=== PATIENT | female | born 1935 | race Caucasian/White ===

== ENCOUNTER 2016-07-23 16:57 | Emergency (ER) | payer MEDICARE, MEDICAID ==
[2016-07-23] MEDS ORDERED: ACETAMINOPHEN 325 MG TABLET PO ONE (18:02)
[2016-07-23 18:34] VITALS: BP 127/64
[2016-07-23] MEDS ORDERED: LIDOCAINE 5% (700 MG) TRANSDERMAL ADH..PATCH TP ONE (18:34)
--- NOTE | 2016-07-23 18:34 | ER Document Report ---
ED General - General Chief Complaint: Fall Stated Complaint: FALL/HEADACHE AND BRUSING Time Seen by Provider: 07/23/16 17:45 TRAVEL OUTSIDE OF THE [place] IN LAST 30 DAYS: No - HPI Patient complains to provider of: fall head pain knee pain and ankle pain Notes: Patient coming in for evaluation after a fall. Patient fell out of her bed on Sunday morning. Patient states she ruled out hit her head. No loss of consciousness coming in today because of continued head pain. Patient states no relief with tramadol home. Patient denies fevers chills nausea vomiting. Patient also complains of left knee left ankle pain - Related Data Allergies/Adverse Reactions: levofloxacin [From Levaquin] Allergy (Intermediate, Verified 07/23/16 17:14) Hives Sulfa (Sulfonamide Antibiotics) Allergy (Intermediate, Verified 07/23/16 17:14) Hives codeine [Codeine] Allergy (Verified 07/23/16 17:14) morphine Allergy (Verified 07/23/16 17:14) Penicillins Allergy (Verified 07/23/16 17:14) Quinazolinones Allergy (Verified 07/23/16 17:14) Past Medical History - Social History Smoking Status: Former Smoker Chew tobacco use (# tins/day): No Frequency of alcohol use: None Drug Abuse: None Family History: Hypertension, Malignancy - Past Medical History Cardiac Medical History: Reports: Hx Atrial Fibrillation, Hx Hypercholesterolemia, Hx Hypertension Denies: Hx Coronary Artery Disease, Hx Heart Attack Pulmonary Medical History: Reports: Hx Bronchitis, Hx Pneumonia, Hx Respiratory Failure Denies: Hx Asthma, Hx COPD Neurological Medical History: Denies: Hx Cerebrovascular Accident, Hx Seizures Endocrine Medical History: Reports: Hx Diabetes Mellitus Type 2 - metformin Renal/ Medical History: Denies: Hx Peritoneal Dialysis Musculoskeltal Medical History: Reports Hx Arthritis, Reports Hx Fibromyalgia, Reports Hx Musculoskeletal Deformity Past Surgical History: Reports: Hx Abdominal Surgery, Hx Cholecystectomy, Hx Herniorrhaphy, Hx Orthopedic Surgery - l knee - Immunizations Immunizations up to date: Yes Hx Diphtheria, Pertussis, Tetanus Vaccination: Yes Review of Systems - Review of Systems Constitutional: No symptoms reported EENT: No symptoms reported Cardiovascular: No symptoms reported Respiratory: No symptoms reported Gastrointestinal: No symptoms reported Genitourinary: No symptoms reported Female Genitourinary: No symptoms reported Musculoskeletal: Other - Head pain knee ankle pain Skin: No symptoms reported Hematologic/Lymphatic: No symptoms reported Neurological/Psychological: No symptoms reported Physical Exam - Vital signs Vitals: Temp Pulse Resp BP Pulse Ox 98.5 F 83 18 104/65 98 07/23/16 17:06 07/23/16 17:06 07/23/16 17:06 07/23/16 17:06 07/23/16 17:06 Interpretation: Normal - General General appearance: Appears well, Alert - HEENT Head: Normocephalic. No: Atraumatic - Bruising to the left upper scalp Eyes: Normal Pupils: PERRL - Respiratory Respiratory status: No respiratory distress Chest status: Nontender Breath sounds: Normal Chest palpation: Normal - Cardiovascular Rhythm: Regular Heart sounds: Normal auscultation Murmur: No - Abdominal Inspection: Normal Distension: No distension Bowel sounds: Normal Tenderness: Nontender Organomegaly: No organomegaly - Back Back: Normal, Nontender - Extremities General upper extremity: Normal inspection, Nontender, Normal color, Normal ROM , Normal temperature General lower extremity: Normal inspection, Nontender, Normal color, Normal ROM , Normal temperature, Normal weight bearing. No: Nikki's sign - Neurological Neuro grossly intact: Yes Cognition: Normal Orientation: AAOx4 [place] Coma Scale Eye Opening: Spontaneous Kamar Coma Scale Verbal: Oriented [place] Coma Scale Motor: Obeys Commands Kamar Coma Scale Total: 15 Speech: Normal Motor strength normal: LUE, RUE, LLE, RLE Sensory: Normal - Psychological Associated symptoms: Normal affect, Normal mood - Skin Skin Temperature: Warm Skin Moisture: Dry Skin Color: Normal Course - Re-evaluation Re-evalutation: 07/23/16 18:29 X-rays are negative. No signs of acute pathology. Patient will be discharged home instructions to use Tylenol Motrin for her head pain patient can't take her tramadol at home for pain. - Vital Signs Vital signs: Temp Pulse Resp BP Pulse Ox 98.5 F 83 18 104/65 98 07/23/16 17:06 07/23/16 17:06 07/23/16 17:06 07/23/16 17:06 07/23/16 17:06 Discharge - Discharge Clinical Impression: Contusion, multiple sites Condition: Good Disposition: HOME, SELF-CARE Instructions: Contusion ([facility]) Additional Instructions: Your CT scan and x-rays today show no signs of fracture or significant trauma. More likely your still expressing pain from bruising or contusion. It will take approximately 5-7 days for this to go away. He can continue your medications at home take Tylenol Motrin for your pain. You may also use the Lidoderm patch if he received good pain relief from is patchy mask her pharmacist about [id number] lidocaine cream or patches. He may also use ice and heat.
== END 2016-07-23 18:35 | disposition home or self-care (01) ==
LOC: ER 16:57
DX: R51 Headache (principal); S00.03XA Contusion of scalp, initial encounter; M25.569 Pain in unspecified knee; M25.579 Pain in unspecified ankle and joints of unspecified foot; W06.XXXA Fall from bed, initial encounter; I10 Essential (primary) hypertension; E11.9 Type 2 diabetes mellitus without complications; Z88.1 Allergy status to other antibiotic agents; Z88.2 Allergy status to sulfonamides; Z88.5 Allergy status to narcotic agent; Z88.0 Allergy status to penicillin; Z88.8 Allergy status to other drugs, medicaments and biological substances
CPT/HCPCS: 99284; 73610; 73560; 70450; A9270

== ENCOUNTER → 2016-11-07 | Outpatient (CLI) | payer MEDICARE, MEDICAID ==
[2016-11-07 16:56] LABS: ABSOLUTE EOSINOPHILS # (AUTO) 0.1 10^3/uL (0.0-0.6); ABSOLUTE MONOCYTES (AUTO) 0.3 10^3/uL (0.1-1.4); ABSOLUTE NEUT (AUTO) 3.5 10^3/uL (1.7-8.2); BASOPHILS % (AUTO) 0.4 % (0-2); EOSINOPHILS % (AUTO) 1.7 % (0-6); HEMATOCRIT 33.1 % (36.0-47.0); HEMOGLOBIN 11.2 g/dL (12.0-15.5); HGB HCT DIFFERENCE 0.5; LYMPHOCYTES % (AUTO) 20.3 % (13-45); MEAN CORPUSCULAR HEMOGLOBIN 32.8 pg (27.0-33.4); MEAN CORPUSCULAR HGB CONC 33.8 g/dL (32.0-36.0); MEAN CORPUSCULAR VOLUME 97 fl (80-97); MONOCYTES % (AUTO) 5.8 % (3-13); RED BLOOD COUNT 3.41 10^6/uL (3.72-5.28); RED CELL DISTRIBUTION WIDTH 15.5 % (11.5-14.0); SEGMENTED NEUTROPHILS % (AUTO) 71.8 % (42-78); WHITE BLOOD COUNT 4.9 10^3/uL (4.0-10.5)
[2016-11-07 17:02] LABS: ALANINE AMINOTRANSFERASE 18 U/L (9-52); ALBUMIN 3.4 g/dL (3.5-5.0); ALKALINE PHOSPHATASE 117 U/L (38-126); ANION GAP 9 (5-19); ASPARTATE AMINO TRANSFERASE 24 U/L (14-36); BILIRUBIN,DIRECT 0.4 mg/dL (0.0-0.4); BILIRUBIN,TOTAL 0.6 mg/dL (0.2-1.3); BLOOD UREA NITROGEN 13 mg/dL (7-20); CALCIUM 9.6 mg/dL (8.4-10.2); CARBON DIOXIDE 32 mmol/L (22-30); CHLORIDE 98 mmol/L (98-107); CREATININE RESULT 0.74 mg/dL (0.52-1.25); GLUCOSE 120 mg/dL (75-110); POTASSIUM 4.4 mmol/L (3.6-5.0); SODIUM 139.2 mmol/L (137-145); TOTAL PROTEIN 6.3 g/dL (6.3-8.2)
[2016-11-07 17:05] LABS: AMORPHOUS SEDIMENT,URINE TRACE /HPF; APPEARANCE,URINE CLOUDY; BILIRUBIN,URINE NEGATIVE (NEGATIVE); GLUCOSE, URINE NEGATIVE (NEGATIVE); KETONES,URINE NEGATIVE (NEGATIVE); LEUKOCYTE ESTERASE,URINE NEGATIVE (NEGATIVE); NITRITE,URINE NEGATIVE (NEGATIVE); PROTEIN,URINE NEGATIVE (NEGATIVE); URINE SPECIFIC GRAVITY 1.012
== END ==
LOC: OD 15:10
PROVIDERS: ATTEND Internal Medicine
DX: N39.0 Urinary tract infection, site not specified (principal); R53.83 Other fatigue; Z79.899 Other long term (current) drug therapy
CPT/HCPCS: 36415; 80053; 81001; 85025; 87086

== ENCOUNTER 2016-11-15 17:10 | Inpatient (IN) | payer MEDICARE, MEDICAID ==
--- NOTE | 2016-11-15 17:31 | RADIOLOGY REPORT (SQ) ---
EXAM DESCRIPTION: CT HEAD WITHOUT COMPLETED DATE/TIME: 11/15/2016 5:20 pm REASON FOR STUDY: STROKE ALERT COMPARISON: 07/23/2016 TECHNIQUE: Axial images acquired through the brain without intravenous contrast. Images reviewed wi th bone, brain and subdural windows. Images stored on PACS. All CT scanners at this facility use dose modulation, iterative reconstruction, and/or weight based d osing when appropriate to reduce radiation dose to as low as reasonably achievable (ALARA). [facility]: Dose Right [facility]: CareDose [facility]: Dose Right [facility]: Teradose 4D [facility]: [employer] RADIATION DOSE: mGy. LIMITATIONS: None. FINDINGS: VENTRICLES: Normal size and contour. CEREBRUM: No masses. No hemorrhage. No midline shift. No evidence for acute infarction. Normal gra y/white matter differentiation. No areas of low density in the white matter. CEREBELLUM: No masses. No hemorrhage. No alteration of density. No evidence for acute infarction. EXTRAAXIAL SPACES: No fluid collections. No masses. ORBITS AND GLOBE: No intra- or extraconal masses. Normal contour of globe without masses. CALVARIUM: No fracture. PARANASAL SINUSES: No fluid or mucosal thickening. SOFT TISSUES: No mass or hematoma. OTHER: Calcifications involving the right TMJ and medial to the TMJ are stable when compared to prior study. IMPRESSION: 1. No acute intracranial event. 2. 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 COMMENT: Pertinent positive or negative findings of the imaging study reported as a CRITICAL EXAM t betina Bach at17:22 on 11/15/2016. Category of Critical Exam: Negative for acute stroke. Quality ID # [id number]: Final reports with documentation of one or more dose reduction techniques (e.g., Au tomated exposure control, adjustment of the mA and/or kV according to patient size, use of iterative reconstruction technique) TECHNICAL DOCUMENTATION: JOB ID: [id number] [employer]- All Rights Reserved
--- NOTE | 2016-11-15 17:33 | RADIOLOGY REPORT (SQ) ---
EXAM DESCRIPTION: CHEST SINGLE VIEW COMPLETED DATE/TIME: 11/15/2016 5:25 pm REASON FOR STUDY: STROKE ALERT COMPARISON: 08/17/2015 EXAM PARAMETERS: NUMBER OF VIEWS: One view. TECHNIQUE: Single frontal radiographic view of the chest acquired. RADIATION DOSE: NA LIMITATIONS: Low lung volumes. FINDINGS: LUNGS AND PLEURA: There is bibasilar atelectasis. Findings are accentuated by low lung vo lumes. Similar findings were present previously. There is interposition of the colon on the right. There is a hiatal hernia. MEDIASTINUM AND HILAR STRUCTURES: No masses. Contour normal. HEART AND VASCULAR STRUCTURES: Heart normal in size. Normal vasculature. BONES: No acute findings. HARDWARE: None in the chest. OTHER: No other significant finding. IMPRESSION: No interval change in the chest. No acute findings. TECHNICAL DOCUMENTATION: JOB ID: [id number]
[2016-11-15 18:03] LABS: ABSOLUTE EOSINOPHILS # (AUTO) 0.1 10^3/uL (0.0-0.6); ABSOLUTE LYMPHOCYTES (AUTO) 1.1 10^3/uL (0.5-4.7); ABSOLUTE MONOCYTES (AUTO) 0.3 10^3/uL (0.1-1.4); ABSOLUTE NEUT (AUTO) 3.9 10^3/uL (1.7-8.2); BASOPHILS % (AUTO) 0.4 % (0-2); HEMATOCRIT 32.1 % (36.0-47.0); HGB HCT DIFFERENCE 0.9; LYMPHOCYTES % (AUTO) 20.2 % (13-45); MEAN CORPUSCULAR HEMOGLOBIN 33.2 pg (27.0-33.4); MEAN CORPUSCULAR HGB CONC 34.3 g/dL (32.0-36.0); MEAN CORPUSCULAR VOLUME 97 fl (80-97); MONOCYTES % (AUTO) 5.6 % (3-13); RED BLOOD COUNT 3.32 10^6/uL (3.72-5.28); RED CELL DISTRIBUTION WIDTH 15.8 % (11.5-14.0); SEGMENTED NEUTROPHILS % (AUTO) 72.8 % (42-78); WHITE BLOOD COUNT 5.3 10^3/uL (4.0-10.5)
[2016-11-15 18:09] LABS: PROTHROMBIN TIME 13.9 SEC (11.4-15.4)
[2016-11-15 18:10] LABS: PARTIAL THROMBOPLASTIN TIME 36.6 SEC (23.5-35.8)
[2016-11-15 18:17] LABS: ALANINE AMINOTRANSFERASE 16 U/L (9-52); ALBUMIN 3.8 g/dL (3.5-5.0); ALKALINE PHOSPHATASE 106 U/L (38-126); ANION GAP 9 (5-19); ASPARTATE AMINO TRANSFERASE 31 U/L (14-36); BILIRUBIN,DIRECT 0.5 mg/dL (0.0-0.4); BILIRUBIN,TOTAL 0.9 mg/dL (0.2-1.3); BLOOD UREA NITROGEN 20 mg/dL (7-20); CALCIUM 9.5 mg/dL (8.4-10.2); CARBON DIOXIDE 30 mmol/L (22-30); CHLORIDE 101 mmol/L (98-107); CREATINE KINASE 32 U/L (30-135); CREATININE RESULT 0.75 mg/dL (0.52-1.25); GLUCOSE 89 mg/dL (75-110); MAGNESIUM 1.5 mg/dL (1.6-2.3); POTASSIUM 4.8 mmol/L (3.6-5.0); TOTAL PROTEIN 6.9 g/dL (6.3-8.2)
[2016-11-15 18:26] LABS: APPEARANCE,URINE CLEAR; BILIRUBIN,URINE NEGATIVE (NEGATIVE); GLUCOSE, URINE NEGATIVE (NEGATIVE); KETONES,URINE NEGATIVE (NEGATIVE); LEUKOCYTE ESTERASE,URINE TRACE (NEGATIVE); NITRITE,URINE NEGATIVE (NEGATIVE); PROTEIN,URINE NEGATIVE (NEGATIVE); URINE SPECIFIC GRAVITY 1.011
[2016-11-15 18:29] LABS: CREATINE KINASE MB 1.09 ng/mL (<4.55)
[2016-11-15 18:36] LABS: TROPONIN I 0.093 ng/mL
[2016-11-15 18:40] LABS: URINE BARBITURATES SCREEN NEGATIVE; URINE METHADONE SCREEN NEGATIVE; URINE OPIATES LOW NEGATIVE; URINE PHENCYCLIDINE SCREEN NEGATIVE
[2016-11-15 19:03] LABS: VENOUS BLOOD BASE EXCESS 3.5 mmol/L; VENOUS BLOOD HCO3 29.6 mmol/L (20-32); VENOUS BLOOD PCO2 53.7 mmHg (35-63); VENOUS BLOOD PH 7.36 (7.30-7.42)
--- NOTE | 2016-11-15 19:43 | EKG REPORT ---
SEVERITY:- NORMAL ECG - SINUS RHYTHM : Confirmed by: Fredrick Canseco MD 15-Nov-2016 19:41:56
[2016-11-15] MEDS ORDERED: MAGNESIUM SULFATE/D5W 1 GM/100 ML RTUPB IV ONE (20:01)
[2016-11-15] MEDS ORDERED: CEFTRIAXONE 1 GM/D5W RTU 1 GM/50 ML RTUPB IV ONE (20:40)
--- NOTE | 2016-11-15 21:29 | ER Document Report ---
ED General - General Chief Complaint: Altered Mental Status Stated Complaint: POSSIBLE STROKE Time Seen by Provider: 11/15/16 17:38 TRAVEL OUTSIDE OF THE [place] IN LAST 30 DAYS: No - HPI Patient complains to provider of: Confusion Notes: Patient coming in for confusion. According family was bedside patient has been confused over the last 24 hours. Upon my evaluation patient is alert and otherwise oriented patient does have difficult time and find some answers to questions such as recent antibiotics and name of chemotherapy. Patient saw a little bit slow to respond however is no aphasia. According to family members this is new for the patient. States history of UTIs in the past that have grown out Pseudomonas. States been treated with Rocephin recently for these Pseudomonas UTIs. Denies any fevers chills nausea vomiting diarrhea trauma. Patient is resting comfortably upon my evaluation. - Related Data Allergies/Adverse Reactions: levofloxacin [From Levaquin] Allergy (Intermediate, Verified 07/23/16 17:14) Hives Sulfa (Sulfonamide Antibiotics) Allergy (Intermediate, Verified 07/23/16 17:14) Hives codeine [Codeine] Allergy (Verified 07/23/16 17:14) morphine Allergy (Verified 07/23/16 17:14) Penicillins Allergy (Verified 07/23/16 17:14) Quinazolinones Allergy (Verified 07/23/16 17:14) Past Medical History - Social History Smoking Status: Never Smoker Chew tobacco use (# tins/day): No Frequency of alcohol use: None Drug Abuse: None Family History: Hypertension, Malignancy - Past Medical History Cardiac Medical History: Reports: Hx Atrial Fibrillation, Hx Hypercholesterolemia, Hx Hypertension Denies: Hx Coronary Artery Disease, Hx Heart Attack Pulmonary Medical History: Reports: Hx Bronchitis, Hx Pneumonia, Hx Respiratory Failure Denies: Hx Asthma, Hx COPD Neurological Medical History: Denies: Hx Cerebrovascular Accident, Hx Seizures Endocrine Medical History: Reports: Hx Diabetes Mellitus Type 2 - metformin Renal/ Medical History: Denies: Hx Peritoneal Dialysis Musculoskeltal Medical History: Reports Hx Arthritis, Reports Hx Fibromyalgia, Reports Hx Musculoskeletal Deformity Past Surgical History: Reports: Hx Abdominal Surgery, Hx Cholecystectomy, Hx Herniorrhaphy, Hx Orthopedic Surgery - l knee - Immunizations Immunizations up to date: Yes Hx Diphtheria, Pertussis, Tetanus Vaccination: Yes Review of Systems - Review of Systems Constitutional: No symptoms reported EENT: No symptoms reported Cardiovascular: No symptoms reported Respiratory: No symptoms reported Gastrointestinal: No symptoms reported Genitourinary: No symptoms reported Female Genitourinary: No symptoms reported Musculoskeletal: No symptoms reported Skin: No symptoms reported Hematologic/Lymphatic: No symptoms reported Neurological/Psychological: No symptoms reported -: Yes All other systems reviewed and negative Physical Exam - Vital signs Vitals: Resp 18 11/15/16 17:27 Interpretation: Normal - General General appearance: Appears well, Alert - HEENT Head: Normocephalic, Atraumatic Eyes: Normal Pupils: PERRL - Respiratory Respiratory status: No respiratory distress Chest status: Nontender Breath sounds: Normal Chest palpation: Normal - Cardiovascular Rhythm: Regular Heart sounds: Normal auscultation Murmur: No - Abdominal Inspection: Normal Distension: No distension Bowel sounds: Normal Tenderness: Nontender Organomegaly: No organomegaly - Back Back: Normal, Nontender - Extremities General upper extremity: Normal inspection, Nontender, Normal color, Normal ROM , Normal temperature General lower extremity: Normal inspection, Nontender, Normal color, Normal ROM , Normal temperature, Normal weight bearing. No: Nikki's sign - Neurological Neuro grossly intact: Yes Cognition: Normal Orientation: AAOx4 [place] Coma Scale Eye Opening: Spontaneous Arab Coma Scale Verbal: Oriented [place] Coma Scale Motor: Obeys Commands Kamar Coma Scale Total: 15 Speech: Normal Motor strength normal: LUE, RUE, LLE, RLE Sensory: Normal - Psychological Associated symptoms: Normal affect, Normal mood - Skin Skin Temperature: Warm Skin Moisture: Dry Skin Color: Normal Course - Re-evaluation Re-evalutation: 11/15/16 22:52 Patient examination otherwise normal so for patient unable to answer some simple questions. Patient does have a slow response time transfer some questions as well. No unilateral weakness laboratory studies not show any significant pathology head CT is negative chest x-ray is negative. Patient's urinalysis showed trace leukocyte esterase with 3 WBCs and trace bacteria. Relatively convincing for a urinary tract infection inquired about admission initially discussed with hospitalist who requested a repeat troponin. This was performed also upon family's urging did contact the patient's oncologist at [facility] DR. Reba Jernigan_Vipin. States that she knows the patient very well and that whenever the patient presents that this most time she ends up having urosepsis. States that she recommend start patient on antibiotics have that the patient cannot be admitted to our facility that she will set the patient in transfer. Troponin repeat return downtrending discussed again with hospitalist agrees with admission. - Vital Signs Vital signs: Temp Pulse Resp BP Pulse Ox 79 22 H 125/55 L 98 11/15/16 17:30 11/15/16 21:01 11/15/16 22:01 11/15/16 22:01 - Laboratory Result Diagrams: 11/15/16 17:45 11/15/16 17:45 Laboratory results interpreted by me: 11/15/16 11/15/16 11/15/16 17:45 17:45 17:45 RBC 3.32 L Hgb 11.0 L Hct 32.1 L RDW 15.8 H APTT 36.6 H Magnesium 1.5 L Direct Bilirubin 0.5 H Urine Blood Urine Urobilinogen Ur Leukocyte Esterase 11/15/16 17:45 RBC Hgb Hct RDW APTT Magnesium Direct Bilirubin Urine Blood SMALL H Urine Urobilinogen 4.0 H Ur Leukocyte Esterase TRACE H Discharge - Discharge Clinical Impression: UTI (urinary tract infection) Qualifiers: Urinary tract infection type: site unspecified Hematuria presence: without hematuria Qualified Code(s): N39.0 - Urinary tract infection, site not specified Altered mental state Qualifiers: Altered mental status type: unspecified Qualified Code(s): R41.82 - Altered mental status, unspecified Condition: Good Disposition: ADMITTED INPATIENT Admitting Provider: Hospitalist - [place] [facility] Admitted: Telemetry
[2016-11-15] MEDS ORDERED: CEFEPIME 1 GM/D5W RTU 1 GM/50 ML RTUPB IV ONE (21:32)
[2016-11-16] MEDS ORDERED: GLUCAGON,HUMAN RECOMB 1 MG INJ IM PRN (01:04)
[2016-11-16] MEDS ORDERED: DEXTROSE 40% GEL 15 GM TUBE PO PRN ×2 (01:04)
[2016-11-16] MEDS ORDERED: INSULIN LISPRO 100 UNIT/ML 3 ML VIAL SUBCUT PRN (01:04)
[2016-11-16] MEDS ORDERED: DEXTROSE 50%-WATER 25 GM/50 ML DISP.SYRIN IV PRN ×2 (01:04)
[2016-11-16] MEDS ORDERED: ACETAMINOPHEN 325 MG TABLET PO PRN (01:06)
[2016-11-16] MEDS ORDERED: MAGNESIUM HYDROXIDE SUSP 30 ML UDCUP PO PRN (01:06)
[2016-11-16] MEDS ORDERED: IPRATROPIUM/ALBUTEROL 0.5-2.5 MG/3 ML AMPUL NEB PRN (01:06)
[2016-11-16] MEDS ORDERED: PROMETHAZINE HCL 25 MG TABLET PO PRN (01:14)
--- NOTE | 2016-11-16 01:42 | PDOC H&P ---
History of Present Illness Admission Date/PCP: 11/15/16 22:28 RENE العراقي MD Patient complains of: CONFUSION History of Present Illness: NICCI GUAJARDO is a 81 year old female with underlying type 2 diabetes mellitus, pulmonary hypertension, arthritis, obstructive sleep apnea, noncompliant with treatment due to claustrophobia, mild reflux, mild depression , without suicidal or homicidal ideation, hypertension, and currently undergoing chemotherapy for ovarian carcinoma, who presents to the emergency room for evaluation of above complaint. Patient has been discussed with emergency room physician who evaluated the patient. Patient is intermittently confused, though improved, per daughter, who is present at her side with patient's approval, and is able to provide little history in terms of acute or chronic events, review of systems, personal habits, family history, etc. no old inpatient records available for review. Over the last 24 hours, slowly progressive confusion. Daughter states that normally her mother is quite mentally sharp and does not carry a diagnosis of dementia. She states this is patient's usual presentation when she develops a urinary tract infection. Finished a course of Rocephin 10 days ago for Pseudomonas urinary tract infection. There is been no chest or abdominal pain, nausea vomiting or diarrhea, fever or chills. Chronic cough, productive of clear sputum, without recent change. Emergency room physician did speak with patient's oncologist, Dr. Reba Lew in [place]. Oncologist knows her quite well, and states this is patient's usual presentation for urosepsis. States due to her last chemotherapy session being Sunday of last week, her white count would not expected to be elevated. She felt that certainly patient should be admitted and placed on IV antibiotics. As noted above, since receiving a dose of cefepime, daughter states the patient , while still somewhat confused, is much more mentally alert and appropriate than prior to the antibiotics. Dictation via voice recognition software. Laboratory results are listed in [employer] and are reviewed. X-ray summary results are listed below, with full report(s) reviewed. . EKG reviewed. Social history/personal habits: . Lives alone, but has daily close follow-up by family members and a neighbor. Retired. Distant history of prior tobacco use. No use of alcohol or illicit drugs. Allergies/adverse reactions are listed in [employer] and are reviewed. No problems with Rocephin or cefepime. Home medications initially autopopulated into [facility]iiu may not accurately reflect patient's true medications, dosages, and/or frequencies. marine diesel technician to reconcile medications. Unfortunately, patient not certain of medications/dosages/frequencies. REVIEW OF SYSTEMS: Constitutional: No fever or chills. Eyes: Wears glasses. ENT: No swallowing problems or complaints. Partial hearing loss. Pulmonary: No current complaints. Cardiovascular: No current complaints, including chest pain. Gastrointestinal: No current complaints, including nausea or vomiting. Skin: No current complaints, including rashes. Hematologic: Easy bruising. Neurologic: See History and Present Illness. Musculoskeletal: Joint pain from arthritis. Psychiatric: Mild occasional depression. Denies suicidal or homicidal ideation. See History and Present Illness. Endocrine: No current complaints, including polyuria. Genitourinary: No current complaints, including dysuria. PHYSICAL EXAMINATION: 5 feet 9 inches tall. Weight is listed as 58.9 kg., With BMI of 19.2 kg/m. I think this weight is too low for my physical examination of the patient, and have entered an order for patient to please be re-weighed. Pulse 86 and regular. Blood pressure 125/81. 99% saturation on room air. Respirations are 23 and unlabored. Temperature not recorded on chart; skin feels normothermic. Well-nourished well-developed elderly female appearing approximately her stated age. Pleasant awake alert and cooperative, though appears to feel a bit under the weather, so to speak, along with somewhat fatigued. Daughter is present at her side; patient approves. Skin is warm and dry. No grossly obvious evidence of rash in areas of skin examined. No subcutaneous nodules palpated. ENT: Hearing grossly normal to normal conversation. Tongue midline on protrusion pink and slightly tacky. Eyes: No scleral icterus. Pupils equal and reactive to light at 4 mm. [place] conjunctivae. Neck is supple and nontender to gentle active range of motion and palpation. Midline trachea. No palpable thyroid nodule mass enlargement or tenderness. Lymphatic: No palpable cervical or clavicular nodes. Neck and lymphatic exams limited by patient body habitus. Psychiatric: Gives intermittently somewhat confused answers to basic questions. Daughter is present and provides a good bit of information. Lungs: Auscultation reveals equal breath sounds bilaterally. No use of accessory respiratory muscles. Slightly coarse bibasilar breath sounds. Cardiovascular: Heart regular rate and rhythm, without gallop murmur or rub. No carotid or abdominal aortic bruits. No ankle or pedal edema. Faintly palpable dorsalis pedis pulses. Abdomen:soft slightly distended nontender with positive bowel sounds. Unable to adequately evaluate abdomen for masses or organomegaly due to distention. Extremities: Feet are warm and dry. No calf tenderness to compression. No grossly obvious visual evidence of calf swelling. Gentle manipulation of lower extremities fails to reveal any obvious evidence of injury or instability to knees hips or ankles. Neurologic: Moves upper extremities grossly normally. Patellar reflexes absent. Absent Babinski. Light touch cannot be adequately evaluated due to her mental status. Dorsiflexion and plantarflexion of feet 5 / 5 and symmetric. Past Medical History Cardiac Medical History: Reports: Atrial Fibrillation, Hypertension Denies: Congestive Heart Failure, Coronary Artery Disease, DVT, Myocardial Infarction, Hyperlipidema, Pulmonary Embolism Pulmonary Medical History: Reports: Bronchitis, Pneumonia, Sleep Apnea - Noncompliant with CPAP mask due to claustrophobia Denies: Asthma, Chronic Obstructive Pulmonary Disease (COPD) EENT Medical History: Reports: Eyes - Glasses, Ears - Partial hearing loss Denies: Throat Neurological Medical History: Denies: Hemorrhagic CVA, Ischemic CVA, Seizures Endocrine Medical History: Reports: Diabetes Mellitus Type 2 - metformin Denies: Diabetes Mellitus Type 1, Hyperthyroidism, Hypothyroidism Renal/ Medical History: Reports: Other - Occasional urinary tract infection Malignancy Medical History: Reports: Ovarian Cancer - Currently undergoing chemotherapy for same GI Medical History: Reports: Gastroesophageal Reflux Disease Denies: Cirrhosis, Hepatitis, Peptic Ulcer Disease Musculoskeltal Medical History: Reports: Arthritis Skin Medical History: Reports: None Psychiatric Medical History: Reports: Depression - Mild intermittent Denies: Alcohol Dependency, General Anxiety Disorder, Substance Abuse, Tobacco Dependency Hematology: Reports: Anemia, Other - Easy bruising Infectious Medical History: Denies: Hepatitis B, Hepatitis C Past Surgical History Past Surgical History: Reports: Cholecystectomy, Herniorrhaphy, Orthopedic Surgery - l knee Social History Information Source: Patient, Relative - Daughter, Emergency Med Personnel, [facility] Records Lives with: Alone Smoking Status: Former Smoker Frequency of Alcohol Use: None Drugs: None Hx Prescription Drug Abuse: No - Advance Directive Resuscitation Status: Full Code Surrogate healthcare decision maker:: Daughter Family History Family History: Hypertension, Malignancy Parental Family History Reviewed: Yes - Parents of cancer Children Family History Reviewed: Yes - Daughter with multiple sclerosis Sibling(s) Family History Reviewed.: Yes - Sibling is cancer survivor Medication/Allergy Home Medications: Duloxetine HCl [Cymbalta] 60 mg PO QAM 11/16/16 Lisinopril [Prinivil 2.5 mg Tablet] 2.5 mg PO QAM 11/16/16 Aspirin [Aspirin 325 mg Tablet] 325 mg PO DAILY tablet 11/23/16 Atorvastatin Calcium [Lipitor 20 mg Tablet] 20 mg PO QHS tablet 11/23/16 Clopidogrel Bisulfate [Plavix 75 mg Tablet] 75 mg PO DAILY tablet 11/23/16 Cyclobenzaprine HCl [Flexeril 10 mg Tablet] 10 mg PO HSP PRN #3 tablet 11/23/16 Dexlansoprazole [Dexilant] 30 mg PO DAILY #30 11/23/16 Docusate Sodium [Colace 100 mg Capsule] 100 mg PO BID capsule 11/23/16 Doxycycline Hyclate 100 mg PO BID #14 capsule 11/23/16 Fluticasone Propionate [Flonase Nasal [place] 50 Mcg/[place] 16 gm] 1 spray NASL Q12 spray.pump 11/23/16 Loratadine [Claritin 10 mg Tablet] 10 mg PO QHS tablet 11/23/16 Magnesium Oxide [Mag-Ox 400 mg Tablet] 400 mg PO BID tablet 11/23/16 Oxycodone HCl [Oxy-Ir 5 mg Tablet] 5 mg PO Q4HP PRN #10 tablet 11/23/16 Sennosides/Docusate 8.6-50 mg [Senna Plus Tablet] 2 each PO QHS tablet Sertraline HCl [Zoloft 50 mg Tablet] 50 mg PO QAM tablet 11/23/16 Tramadol HCl [Ultram 50 mg Tablet] 50 mg PO Q8HP PRN #10 tablet 11/23/16 Allergies/Adverse Reactions: levofloxacin [From Levaquin] Allergy (Intermediate, Verified 07/23/16 17:14) Hives Sulfa (Sulfonamide Antibiotics) Allergy (Intermediate, Verified 07/23/16 17:14) Hives codeine [Codeine] Allergy (Verified 07/23/16 17:14) morphine Allergy (Verified 07/23/16 17:14) Penicillins Allergy (Verified 11/16/16 01:05) Quinazolinones Allergy (Verified 07/23/16 17:14) Physical Exam Vital Signs: Temp Pulse Resp BP Pulse Ox 79 20 135/72 H 100 11/15/16 17:30 11/16/16 00:01 11/16/16 00:01 11/16/16 00:01 Intake & Output 11/15/16 11/16/16 11/17/16 00:59 00:59 00:59 Weight 58.9 kg Results Impressions: Chest X-Ray 11/15/16 00:00 IMPRESSION: No interval change in the chest. No acute findings. Head CT 11/15/16 00:00 IMPRESSION: 1. No acute intracranial event. 2. 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 Assessment & Plan - Diagnosis (2) Acute encephalopathy Is this a current diagnosis for this admission?: Yes Plan: Should clear with time and treatment. (3) Elevated troponin Is this a current diagnosis for this admission?: Yes Plan: No outward evidence of acute coronary syndrome, but will trend troponins. (4) Hypomagnesemia Is this a current diagnosis for this admission?: Yes Plan: Magnesium supplementation. Follow-up level. (5) UTI (urinary tract infection) Qualifiers: Urinary tract infection type: site unspecified Is this a current diagnosis for this admission?: Yes Plan: Cefepime. See comments in history and present illness. I have strongly encouraged patient not to get out of bed without notifying staff , to avoid a fall with injury. Knee high SCDs for DVT prophylaxis, along with subcutaneous Lovenox. Impression and plans were discussed with patient and daughter, both of whom concur. Daughter understands that confusion may worsen while patient is in hospital. Time spent in evaluation and management of patient: 68 minutes. (6) Diabetes mellitus type 2 in nonobese Is this a current diagnosis for this admission?: Yes Plan: Diabetic cardiac diet. Accu-Cheks with appropriate sliding scale coverage. Resume home medications as appropriate once these have been determined and reviewed. (7) Immunosuppressed due to chemotherapy Is this a current diagnosis for this admission?: Yes (8) Anemia Qualifiers: Anemia type: unspecified type Qualified Code(s): D64.9 - Anemia, unspecified Is this a current diagnosis for this admission?: Yes Plan: Follow-up CBC with differential. No need for transfusion at present time. - Time Time Spent: 50 to 70 Minutes Anticipated discharge: Home Within: within 72 hours - Inpatient Certification Based on my medical assessment, after consideration of the patient's comorbidities, presenting symptoms, or acuity I expect that the services needed warrant INPATIENT care.: Yes I certify that my determination is in accordance with my understanding of Medicare's requirements for reasonable and necessary INPATIENT services [42 CFR 412.3e].: Yes Medical Necessity: Significant Comorbidiites Make Outpatient Treatment Too Risky , Need Close Monitoring Due to Risk of Patient Decompensation, Need for IV Antibiotics, Risk of Complication if Not Cared For in Hospital Post Hospital Care: D/C or Transfer Summary
[2016-11-16 03:20] LABS: ABSOLUTE EOSINOPHILS # (AUTO) 0.1 10^3/uL (0.0-0.6); ABSOLUTE LYMPHOCYTES (AUTO) 1.5 10^3/uL (0.5-4.7); ABSOLUTE MONOCYTES (AUTO) 0.3 10^3/uL (0.1-1.4); ABSOLUTE NEUT (AUTO) 4.2 10^3/uL (1.7-8.2); BASOPHILS % (AUTO) 0.5 % (0-2); EOSINOPHILS % (AUTO) 1.5 % (0-6); HEMATOCRIT 31.6 % (36.0-47.0); HEMOGLOBIN 10.9 g/dL (12.0-15.5); HGB HCT DIFFERENCE 1.1; LYMPHOCYTES % (AUTO) 24.8 % (13-45); MEAN CORPUSCULAR HEMOGLOBIN 33.2 pg (27.0-33.4); MEAN CORPUSCULAR HGB CONC 34.5 g/dL (32.0-36.0); MEAN CORPUSCULAR VOLUME 96 fl (80-97); MONOCYTES % (AUTO) 5.4 % (3-13); RED BLOOD COUNT 3.29 10^6/uL (3.72-5.28); RED CELL DISTRIBUTION WIDTH 15.4 % (11.5-14.0); SEGMENTED NEUTROPHILS % (AUTO) 67.8 % (42-78); WHITE BLOOD COUNT 6.2 10^3/uL (4.0-10.5)
[2016-11-16 03:34] LABS: ANION GAP 7 (5-19); BLOOD UREA NITROGEN 17 mg/dL (7-20); CALCIUM 9.7 mg/dL (8.4-10.2); CARBON DIOXIDE 30 mmol/L (22-30); CHLORIDE 103 mmol/L (98-107); CREATININE RESULT 0.66 mg/dL (0.52-1.25); GLUCOSE 88 mg/dL (75-110); MAGNESIUM 1.8 mg/dL (1.6-2.3); POTASSIUM 4.5 mmol/L (3.6-5.0); SODIUM 139.6 mmol/L (137-145)
[2016-11-16] MEDS: ENOXAPARIN SODIUM INJ 40 MG/0.4 ML DISP.SYRIN SUBCUT SCH (09:27)
[2016-11-16] MEDS: DOCUSATE SODIUM 100 MG CAPSULE PO SCH ×2 (09:28→17:15)
[2016-11-16] MEDS: CEFEPIME 1 GM/D5W RTU 1 GM/50 ML RTUPB IV SCH ×2 (09:28→22:09)
[2016-11-16] MEDS: MAGNESIUM OXIDE 400 MG TABLET PO SCH ×2 (09:28→17:15)
[2016-11-16] MEDS ORDERED: TRAMADOL HCL 50 MG TABLET PO PRN (11:21)
[2016-11-16] MEDS ORDERED: (PENDING PHARMACY ID) (Diltiazem Hcl [Diltiazem 12hr Er] 60 MG) PO PRN (11:21)
[2016-11-16] MEDS ORDERED: CYCLOBENZAPRINE HCL 10 MG TABLET PO PRN (11:21)
--- NOTE | 2016-11-16 11:40 | PDOC PROGRESS REPORT ---
Subjective Progress Note for:: 11/16/16 Subjective:: Patient seen on morning rounds. She is resting in bed. She can answer simple yes and no questions but otherwise seems to have difficulty finding her words. She remains confused to time and place. There is presently no family in the room. She is moving all extremities equally. She denies any shortness of breath or chest pain. She denies nausea, vomiting. Remaining review of systems are unable to be obtained due to mentation Physical Exam Vital Signs: Temp Pulse Resp BP Pulse Ox 99.1 F 82 16 123/56 L 100 11/16/16 07:50 11/16/16 08:00 11/16/16 08:00 11/16/16 07:50 11/16/16 08:00 Intake & Output 11/15/16 11/16/16 11/17/16 06:59 06:59 06:59 Intake Total 5 Balance 5 General appearance: PRESENT: no acute distress, thin, well-developed Head exam: PRESENT: atraumatic, normocephalic Eye exam: PRESENT: conjunctiva pale Ear exam: PRESENT: normal external ear exam Mouth exam: PRESENT: moist, tongue midline Neck exam: ABSENT: carotid bruit, JVD, lymphadenopathy, thyromegaly Respiratory exam: PRESENT: clear to auscultation alok. ABSENT: rales, rhonchi, wheezes Cardiovascular exam: PRESENT: RRR. ABSENT: diastolic murmur, rubs, systolic murmur Pulses: PRESENT: normal dorsalis pedis pul Vascular exam: PRESENT: normal capillary refill GI/Abdominal exam: PRESENT: normal bowel sounds, soft. ABSENT: distended, guarding, mass, organolmegaly, rebound, tenderness Rectal exam: PRESENT: deferred Extremities exam: PRESENT: full ROM. ABSENT: calf tenderness, clubbing, pedal edema Neurological exam: PRESENT: alert, altered, awake, CN II-XII grossly intact. ABSENT: motor sensory deficit Psychiatric exam: PRESENT: flat affect. ABSENT: homicidal ideation, suicidal ideation Skin exam: PRESENT: dry, intact, warm. ABSENT: cyanosis, rash Results Laboratory Results: 11/16/16 03:11 11/16/16 03:11 11/16/16 11/16/16 03:11 03:11 WBC 6.2 RBC 3.29 L Hgb 10.9 L Hct 31.6 L MCV 96 MCH 33.2 MCHC 34.5 RDW 15.4 H Plt Count 215 Seg Neutrophils % 67.8 Lymphocytes % 24.8 Monocytes % 5.4 Eosinophils % 1.5 Basophils % 0.5 Absolute Neutrophils 4.2 Absolute Lymphocytes 1.5 Absolute Monocytes 0.3 Absolute Eosinophils 0.1 Absolute Basophils 0.0 Sodium 139.6 Potassium 4.5 Chloride 103 Carbon Dioxide 30 Anion Gap 7 BUN 17 Creatinine 0.66 Est GFR ( Amer) > 60 Est GFR (Non-Af Amer) > 60 Glucose 88 Calcium 9.7 Magnesium 1.8 11/16/16 11/16/16 03:11 09:06 Troponin I 0.065 0.069 Impressions: Chest X-Ray 11/15/16 00:00 IMPRESSION: No interval change in the chest. No acute findings. Head CT 11/15/16 00:00 IMPRESSION: 1. No acute intracranial event. 2. 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 Assessment & Plan - Diagnosis (1) Acute encephalopathy Is this a current diagnosis for this admission?: Yes (2) Elevated troponin Is this a current diagnosis for this admission?: Yes (3) UTI (urinary tract infection) Qualifiers: Urinary tract infection type: site unspecified Qualified Code(s): N39.0 - Urinary tract infection, site not specified Is this a current diagnosis for this admission?: Yes (4) Diabetes mellitus type 2 in nonobese Is this a current diagnosis for this admission?: Yes Plan: Cover with sliding scale coverage. Hold Metformin until mentation and appetite improves (5) Immunosuppressed due to chemotherapy Is this a current diagnosis for this admission?: Yes Plan: Patient is presently being treated for ovarian cancer with chemotherapy - Time Time Spent with patient: 25-34 minutes Critical Time spent with patient: 15-24 minutes Smoking Cessation Education: 3 to 10 minutes Medications reviewed and adjusted accordingly: Yes
[2016-11-16] MEDS: NORMAL SALINE 1000 ML 1,000 ML IV PRN (17:15)
[2016-11-17] MEDS ORDERED: (PENDING PHARMACY ID) (Lisinopril [Prinivil 2.5 Mg Tablet] 2.5 MG) PO SCH (08:00)
[2016-11-17] MEDS: LISINOPRIL 5 MG TABLET PO SCH (08:09)
[2016-11-17] MEDS: SERTRALINE HCL 50 MG TABLET PO SCH (08:09)
[2016-11-17] MEDS: DULOXETINE HCL 30 MG CAPSULE.DR PO SCH (08:11)
[2016-11-17] MEDS: CELECOXIB 100 MG CAPSULE PO SCH (08:11)
[2016-11-17] MEDS: MAGNESIUM OXIDE 400 MG TABLET PO SCH ×2 (10:26→17:57)
[2016-11-17] MEDS: DOCUSATE SODIUM 100 MG CAPSULE PO SCH ×2 (10:26→17:58)
[2016-11-17] MEDS: CEFEPIME 1 GM/D5W RTU 1 GM/50 ML RTUPB IV SCH ×2 (10:33→21:57)
[2016-11-17] MEDS: ENOXAPARIN SODIUM INJ 40 MG/0.4 ML DISP.SYRIN SUBCUT SCH (10:33)
[2016-11-17] MEDS: OXYCODONE HCL IR 5 MG TABLET PO PRN (14:53)
[2016-11-17] MEDS ORDERED: VANCOMYCIN HCL 0 MG in DEXTROSE 5%-WATER 250 ML IV NR (16:15)
[2016-11-17] MEDS: VANCOMYCIN HCL 750 MG in DEXTROSE 5%-WATER 250 ML IV SCH (17:56)
--- NOTE | 2016-11-17 20:55 | PDOC PROGRESS REPORT ---
Subjective Progress Note for:: 11/17/16 Subjective:: This is a follow-up visit for urinary tract infection and confusion. The patient's daughter is at bedside and is quite concerned because the patient has had what she is noted is expressive aphasia. The nurse did call me with these concerns. Apparently there was some discussion yesterday with the provider that the patient may or may not need a repeat CT scan of the head. In my discussion with the patient's daughter, the patient at times says short phrases quite clearly and then at other times she seems as though she is struggling to get her words out. I have asked the patient repeatedly at the bedside to try and speak however the patient becomes frustrated and hunches her shoulders and gives up. She constantly clears her throat. When asked if it is more pain that keeps her from speaking as opposed to ability as she does not answer. Her daughter describes an episode where she did seem like she was in pain with swallowing. Physical Exam Vital Signs: Temp Pulse Resp BP Pulse Ox 99.9 F 82 16 130/63 H 98 11/17/16 20:07 11/17/16 20:07 11/17/16 20:07 11/17/16 20:07 11/17/16 20:07 Intake & Output 11/16/16 11/17/16 11/18/16 06:59 06:59 06:59 Intake Total 5 920 900 Balance 5 920 900 Weight 62.8 kg GENERAL: This is a well-developed thin appearing white female resting in bed in no acute distress but occasionally appearing frustrated. HEART: Regular rate and rhythm. No murmurs, rubs or gallops. LUNGS: Clear to auscultation bilaterally with equal rise and fall of the chest. ABDOMEN: Soft, nontender, nondistended with normoactive bowel sounds EXTREMETIES: No clubbing, cyanosis or edema. 2+ peripheral pulses bilaterally. NEURO: [Awake, alert. Orientation is not able to be tested as the patient does not respond verbally to these questions or with shaking or nodding of the head. The patient does follow commands quite well. She has throat clearing at the bedside. When asked to speak she looks at her daughter for reassurance and then gives up. She does not try to articulate at all. Results Laboratory Results: 11/16/16 03:11 11/16/16 03:11 11/16/16 11/16/16 03:11 09:06 Troponin I 0.065 0.069 Impressions: Chest X-Ray 11/15/16 00:00 IMPRESSION: No interval change in the chest. No acute findings. Head CT 11/15/16 00:00 IMPRESSION: 1. No acute intracranial event. 2. 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 Assessment & Plan - Diagnosis (1) Bacteremia Plan: Patient is already on cefepime. Will add vancomycin. Luminary cultures only show gram-positive cocci. Therefore we will cover for both staph and strep. It is unclear at this point whether or not this is a contaminated but if it is real certainly could explain the patient's mental status changes. (2) Acute encephalopathy Is this a current diagnosis for this admission?: Yes Plan: This seems to have cleared. The patient is able to follow commands at the bedside. CT of the head was negative for anything acute. Although she is having trouble articulating again she can follow commands. Moments of confusion that have been witnessed in the past could be explained by underlying bacteremia. We will continue to monitor but based on today's exam would seem to have resolved. (3) Elevated troponin Is this a current diagnosis for this admission?: Yes Plan: This is marginally elevated. (4) UTI (urinary tract infection) Qualifiers: Urinary tract infection type: site unspecified Qualified Code(s): N39.0 - Urinary tract infection, site not specified Is this a current diagnosis for this admission?: Yes Plan: Patient was treated with Rocephin as an outpatient. Repeat cultures here are currently negative. (5) Diabetes mellitus type 2 in nonobese Is this a current diagnosis for this admission?: Yes Plan: Continue current medications. 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 (7) Malignant neoplasm of ovary Plan: Continue to follow-up as an outpatient. (8) Anemia Qualifiers: Anemia type: unspecified type Qualified Code(s): D64.9 - Anemia, unspecified Is this a current diagnosis for this admission?: Yes Plan: Stable. - Time Time Spent with patient: 35 or more minutes Anticipated discharge: Home - Inpatient Certification Medical Necessity: Need Close Monitoring Due to Risk of Patient Decompensation
[2016-11-18] MEDS: VANCOMYCIN HCL 750 MG in DEXTROSE 5%-WATER 250 ML IV SCH ×2 (05:08→17:16)
[2016-11-18 05:50] LABS: ABSOLUTE EOSINOPHILS # (AUTO) 0.1 10^3/uL (0.0-0.6); ABSOLUTE LYMPHOCYTES (AUTO) 1.1 10^3/uL (0.5-4.7); ABSOLUTE MONOCYTES (AUTO) 0.5 10^3/uL (0.1-1.4); ABSOLUTE NEUT (AUTO) 3.4 10^3/uL (1.7-8.2); BASOPHILS % (AUTO) 0.4 % (0-2); EOSINOPHILS % (AUTO) 1.2 % (0-6); HEMATOCRIT 31.3 % (36.0-47.0); HEMOGLOBIN 10.7 g/dL (12.0-15.5); HGB HCT DIFFERENCE 0.8; LYMPHOCYTES % (AUTO) 22.3 % (13-45); MEAN CORPUSCULAR HEMOGLOBIN 32.9 pg (27.0-33.4); MEAN CORPUSCULAR HGB CONC 34.2 g/dL (32.0-36.0); MEAN CORPUSCULAR VOLUME 96 fl (80-97); MONOCYTES % (AUTO) 8.9 % (3-13); RED BLOOD COUNT 3.26 10^6/uL (3.72-5.28); RED CELL DISTRIBUTION WIDTH 15.6 % (11.5-14.0); SEGMENTED NEUTROPHILS % (AUTO) 67.2 % (42-78); WHITE BLOOD COUNT 5.1 10^3/uL (4.0-10.5)
[2016-11-18 06:10] LABS: ANION GAP 7 (5-19); BLOOD UREA NITROGEN 16 mg/dL (7-20); CALCIUM 9.8 mg/dL (8.4-10.2); CARBON DIOXIDE 27 mmol/L (22-30); CHLORIDE 104 mmol/L (98-107); CREATININE RESULT 0.66 mg/dL (0.52-1.25); GLUCOSE 93 mg/dL (75-110); MAGNESIUM 1.7 mg/dL (1.6-2.3); POTASSIUM 4.2 mmol/L (3.6-5.0)
[2016-11-18] MEDS: LISINOPRIL 5 MG TABLET PO SCH (09:00)
[2016-11-18] MEDS: DULOXETINE HCL 30 MG CAPSULE.DR PO SCH (09:01)
[2016-11-18] MEDS: SERTRALINE HCL 50 MG TABLET PO SCH (09:02)
[2016-11-18] MEDS: CELECOXIB 100 MG CAPSULE PO SCH (09:02)
[2016-11-18] MEDS: ENOXAPARIN SODIUM INJ 40 MG/0.4 ML DISP.SYRIN SUBCUT SCH (09:10)
[2016-11-18] MEDS: MAGNESIUM OXIDE 400 MG TABLET PO SCH ×2 (09:10→17:15)
[2016-11-18] MEDS: CEFEPIME 1 GM/D5W RTU 1 GM/50 ML RTUPB IV SCH (09:10)
[2016-11-18] MEDS: DOCUSATE SODIUM 100 MG CAPSULE PO SCH ×2 (09:11→17:15)
[2016-11-18] MEDS ORDERED: LORAZEPAM INJ 2 MG/1 ML VIAL IV ONE (14:00)
--- NOTE | 2016-11-18 16:06 | RADIOLOGY REPORT (SQ) ---
EXAM DESCRIPTION: MRI HEAD WITHOUT COMPLETED DATE/TIME: 11/18/2016 2:59 pm REASON FOR STUDY: expressive aphasia COMPARISON: CT from 11/15/2016. TECHNIQUE: Multiplanar imaging includes non-contrasted T1, T2, FLAIR, and diffusion with ADC map seq uences. Images stored on PACS. LIMITATIONS: Moderate motion artifact limits some of the sequences. FINDINGS: ANATOMY: Grossly intact midline structures. CSF SPACES: Age-appropriate without extra-axial fluid or hemorrhage. CEREBRUM: Patchy FLAIR hyperintensities, most confluent in the left frontal lobe. No hemorrhage or s hift evident. See diffusion imaging below. POSTERIOR FOSSA: No signal alteration. No hemorrhage. No edema, masses or mass effect. Internal jackie tory canals, cerebello-pontine angles, mastoids normal. DIFFUSION IMAGING: Restricted diffusion in the left frontal lobe, somewhat spotty and multifocal here . Minimal tiny focal areas of right frontal lobe restricted diffusion. Consistent with recent infar cts. ORBITS: No masses. Globes normal. PARANASAL SINUSES: No fluid levels. Mucosa normal. OTHER: No other significant finding. IMPRESSION: 1. 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 EVIDENCE OF ACUTE STROKE: YES. LEFT MCA TECHNICAL DOCUMENTATION: JOB ID: [id number] [employer]- All Rights Reserved
--- NOTE | 2016-11-18 17:46 | PDOC PROGRESS REPORT ---
Subjective Progress Note for:: 11/18/16 Subjective:: This is a follow-up visit for urinary tract infection and confusion. The patient's daughter is at bedside. The patient still is not speaking. She is obviously more mentally clear today. She has been witnessing short phrases during times of agitation. I did broach the idea with the family that even if she does have an infection that should not cause these type of symptoms and that we should probably pursue MRI of her brain. If this is negative then psychosomatic disorder such as conversion disorder should be considered. Physical Exam Vital Signs: Temp Pulse Resp BP Pulse Ox 98.2 F 93 17 107/69 98 11/18/16 11:32 11/18/16 14:00 11/18/16 11:32 11/18/16 11:32 11/18/16 11:32 Intake & Output 11/17/16 11/18/16 11/19/16 06:59 06:59 06:59 Intake Total 920 1900 240 Balance 920 1900 240 Weight 62.8 kg GENERAL: This is a well-developed thin appearing white female resting in bed in no acute distress but occasionally appearing frustrated. HEART: Regular rate and rhythm. No murmurs, rubs or gallops. LUNGS: Clear to auscultation bilaterally with equal rise and fall of the chest. ABDOMEN: Soft, nontender, nondistended with normoactive bowel sounds EXTREMETIES: No clubbing, cyanosis or edema. 2+ peripheral pulses bilaterally. NEURO: Awake, alert. The patient does follow commands quite well. She has throat clearing at the bedside. When asked to speak she looks at her daughter for reassurance and then gives up. She does not try to articulate at all. Psych: The patient has 2 episodes at the bedside where she is happy and then begins to cry Results Laboratory Results: 11/18/16 05:35 11/18/16 05:35 11/18/16 11/18/16 05:35 05:35 WBC 5.1 RBC 3.26 L Hgb 10.7 L Hct 31.3 L MCV 96 MCH 32.9 MCHC 34.2 RDW 15.6 H Plt Count 205 Seg Neutrophils % 67.2 Lymphocytes % 22.3 Monocytes % 8.9 Eosinophils % 1.2 Basophils % 0.4 Absolute Neutrophils 3.4 Absolute Lymphocytes 1.1 Absolute Monocytes 0.5 Absolute Eosinophils 0.1 Absolute Basophils 0.0 Sodium 138.0 Potassium 4.2 Chloride 104 Carbon Dioxide 27 Anion Gap 7 BUN 16 Creatinine 0.66 Est GFR ( Amer) > 60 Est GFR (Non-Af Amer) > 60 Glucose 93 Calcium 9.8 Magnesium 1.7 11/16/16 11/16/16 03:11 09:06 Troponin I 0.065 0.069 Impressions: Chest X-Ray 11/15/16 00:00 IMPRESSION: No interval change in the chest. No acute findings. Head CT 11/15/16 00:00 IMPRESSION: 1. No acute intracranial event. 2. 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 Head MRI 11/18/16 00:00 IMPRESSION: 1. 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 EVIDENCE OF ACUTE STROKE: YES. LEFT MCA Assessment & Plan - Diagnosis (1) Bacteremia Plan: Patient is on cefepime and vancomycin. Preliminary cultures only show gram- positive cocci in 1 of 2 bottles. Therefore we will cover for both staph and strep. It is unclear at this point whether or not this is a contaminant; But if it is real it certainly could explain the patient's mental status changes which have now resolved. (2) Acute encephalopathy Is this a current diagnosis for this admission?: Yes Plan: This seems to have cleared. The patient is able to follow commands at the bedside. CT of the head was negative for anything acute. Although she is having trouble articulating again she can follow commands. Obtain MRI of the brain. Encephalopathy seems to be resolved. (3) Elevated troponin Is this a current diagnosis for this admission?: Yes Plan: This is marginally elevated. (4) UTI (urinary tract infection) Qualifiers: Urinary tract infection type: site unspecified Qualified Code(s): N39.0 - Urinary tract infection, site not specified Is this a current diagnosis for this admission?: Yes Plan: Patient was treated with Rocephin as an outpatient. Repeat cultures here are currently negative. (5) Diabetes mellitus type 2 in nonobese Is this a current diagnosis for this admission?: Yes Plan: Continue current medications. 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 (7) Malignant neoplasm of ovary Plan: Continue to follow-up as an outpatient. (8) Anemia Qualifiers: Anemia type: unspecified type Qualified Code(s): D64.9 - Anemia, unspecified Is this a current diagnosis for this admission?: Yes Plan: Stable. - Time Time Spent with patient: 15-24 minutes - Inpatient Certification Medical Necessity: Need Close Monitoring Due to Risk of Patient Decompensation
[2016-11-18] MEDS ORDERED: ASPIRIN 325 MG TABLET PO ONE (19:45)
[2016-11-18] MEDS ORDERED: CLOPIDOGREL BISULFATE 75 MG TABLET PO ONE (19:45)
[2016-11-18] MEDS ORDERED: CEFEPIME 1 GM/D5W RTU 1 GM/50 ML RTUPB IV ONE (22:56)
[2016-11-19] MEDS: CEFEPIME 1 GM/D5W RTU 1 GM/50 ML RTUPB IV SCH ×3 (05:23→22:47)
[2016-11-19] MEDS: OXYCODONE HCL IR 5 MG TABLET PO PRN (05:23)
[2016-11-19] MEDS: NORMAL SALINE 1000 ML 1,000 ML IV PRN ×2 (05:24→10:09)
[2016-11-19] MEDS: VANCOMYCIN HCL 750 MG in DEXTROSE 5%-WATER 250 ML IV SCH ×2 (05:33→18:04)
[2016-11-19 06:16] LABS: CREATININE RESULT 0.63 mg/dL (0.52-1.25)
[2016-11-19] MEDS: DULOXETINE HCL 30 MG CAPSULE.DR PO SCH (08:44)
[2016-11-19] MEDS: SERTRALINE HCL 50 MG TABLET PO SCH (08:44)
[2016-11-19] MEDS: LISINOPRIL 5 MG TABLET PO SCH (08:44)
[2016-11-19] MEDS: ENOXAPARIN SODIUM INJ 40 MG/0.4 ML DISP.SYRIN SUBCUT SCH (10:11)
[2016-11-19] MEDS: DOCUSATE SODIUM 100 MG CAPSULE PO SCH ×2 (10:43→17:03)
[2016-11-19] MEDS: MAGNESIUM OXIDE 400 MG TABLET PO SCH ×2 (10:43→17:03)
[2016-11-19] MEDS: CLOPIDOGREL BISULFATE 75 MG TABLET PO SCH (10:43)
[2016-11-19] MEDS: ASPIRIN 325 MG TABLET PO SCH (10:43)
[2016-11-19] MEDS ORDERED: PHENOL/SODIUM PHENOLATE 100 SPRAY/177 ML BOTTLE PO PRN (11:02)
[2016-11-19] MEDS ORDERED: LORAZEPAM INJ 2 MG/1 ML VIAL IV PRN ×2 (11:03→13:28)
[2016-11-19] MEDS ORDERED: LORAZEPAM INJ 2 MG/1 ML VIAL IV ONE (13:00)
--- NOTE | 2016-11-19 14:45 | RADIOLOGY REPORT (SQ) ---
EXAM DESCRIPTION: MRA NECK WITHOUT COMPLETED DATE/TIME: 11/19/2016 2:32 pm REASON FOR STUDY: new stroke COMPARISON: None. TECHNIQUE: Axial 2-D volume acquisition imaging through the extracranial carotid and vertebral arter ies with reformatting using 3-D MIPS. LIMITATIONS: Excessive patient motion in the scanner. FINDINGS: There is no obvious high-grade stenosis of the internal carotid arteries. Evaluation of p osterior circulation is even more limited. IMPRESSION: Technically limited study. No obvious significant stenosis. COMMENT: Quality ID #[id number]: Measurements of distal internal carotid diameter were used as the denomin ator for stenosis measurement. TECHNICAL DOCUMENTATION: JOB ID: [id number] [employer]- All Rights Reserved
--- NOTE | 2016-11-19 14:46 | RADIOLOGY REPORT (SQ) ---
EXAM DESCRIPTION: MRA HEAD WITHOUT COMPLETED DATE/TIME: 11/19/2016 2:32 pm REASON FOR STUDY: new frontal lobe stroke COMPARISON: None. TECHNIQUE: Axial 3-D [id number] acquisition imaging performed through the brain in the area of t he [place]. Images reformatted using 3-D MIPS. LIMITATIONS: Excessive patient motion in the scanner. FINDINGS: There is no obvious aneurysm or high-grade stenosis. IMPRESSION: Technically limited study. No obvious stenosis or aneurysm. TECHNICAL DOCUMENTATION: JOB ID: [id number] [employer]- All Rights Reserved
--- NOTE | 2016-11-19 15:16 | PDOC PROGRESS REPORT ---
Subjective Progress Note for:: 11/19/16 Subjective:: This is a follow-up visit acute stroke. The patient's daughter is at bedside. The patient is not completely cooperative at the bedside with the swallowing evaluation. She outright refuses to take any clear liquids. She did try a mechanical soft diet with thickened liquids but when she tasted that they can refused any further liquids thin or thickened. No acute events overnight. The patient has been witnessed by the nursing staff to occasional lead be able to get out a phrase yes or no. But she has not been able to speak beyond this. She seems frustrated when she tries. The patient complains of dysphagia at the bedside as well. Physical Exam Vital Signs: Temp Pulse Resp BP Pulse Ox 98.7 F 92 18 122/55 L 100 11/19/16 11:11 11/19/16 11:11 11/19/16 11:11 11/19/16 11:11 11/19/16 11:11 Intake & Output 11/18/16 11/19/16 11/20/16 06:59 06:59 06:59 Intake Total 1900 2490 0 Balance 1900 2490 0 GENERAL: This is a well-developed thin appearing white female resting in bed in no acute distress but occasionally appearing frustrated. HEART: Regular rate and rhythm. No murmurs, rubs or gallops. LUNGS: Clear to auscultation bilaterally with equal rise and fall of the chest. ABDOMEN: Soft, nontender, nondistended with normoactive bowel sounds EXTREMETIES: No clubbing, cyanosis or edema. 2+ peripheral pulses bilaterally. NEURO: Awake, alert. The patient does follow commands quite well. She does not articulate at all for me. Results Laboratory Results: 11/18/16 05:35 11/19/16 05:38 11/19/16 05:38 Creatinine 0.63 Est GFR ( Amer) > 60 Est GFR (Non-Af Amer) > 60 11/16/16 11/16/16 03:11 09:06 Troponin I 0.065 0.069 Impressions: Chest X-Ray 11/15/16 00:00 IMPRESSION: No interval change in the chest. No acute findings. Head CT 11/15/16 00:00 IMPRESSION: 1. No acute intracranial event. 2. 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 Head MRI 11/18/16 00:00 IMPRESSION: 1. 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 EVIDENCE OF ACUTE STROKE: YES. LEFT MCA Brain MRI with MRA 11/19/16 00:00 IMPRESSION: Technically limited study. No obvious stenosis or aneurysm. Neck MRA 11/19/16 00:00 IMPRESSION: Technically limited study. No obvious significant stenosis. Assessment & Plan - Diagnosis (1) Acute ischemic left MCA stroke Is this a current diagnosis for this admission?: Yes Plan: The patient has been started on aspirin and Plavix. MRA of the head and neck have been ordered. The patient still has expressive aphasia. Speech has been consulted. Will also consult PT and OT. We will ask speech to provide cognitive therapy as well. Atorvastatin has been included in the patient's medications. (2) Bacteremia Plan: Patient is on cefepime and vancomycin. Preliminary cultures only show gram- positive cocci in 1 of 2 bottles. Therefore we will cover for both staph and strep. It is unclear at this point whether or not this is a contaminant; But if it is real it certainly could explain the patient's mental status changes which have now resolved. When I spoke to the microbiology lab they state that the culture will not be available until 430 this afternoon. (3) Acute encephalopathy Is this a current diagnosis for this admission?: Yes Plan: Resolved. (4) Elevated troponin Is this a current diagnosis for this admission?: Yes Plan: This is marginally elevated. (5) UTI (urinary tract infection) Qualifiers: Urinary tract infection type: site unspecified Is this a current diagnosis for this admission?: Yes Plan: Urinary tract infection has been ruled out. Patient was treated with Rocephin as an outpatient. Repeat cultures here are currently negative. (6) Diabetes mellitus type 2 in nonobese Is this a current diagnosis for this admission?: Yes Plan: Continue current medications. (7) Immunosuppressed due to chemotherapy Is this a current diagnosis for this admission?: Yes Plan: Follow-up as an outpatient. (8) Malignant neoplasm of ovary Plan: Continue to follow-up as an outpatient. (9) Anemia Qualifiers: Anemia type: unspecified type Qualified Code(s): D64.9 - Anemia, unspecified Is this a current diagnosis for this admission?: Yes Plan: Stable. (10) Dysphasia Plan: The patient has expressed odynophagia and dysphagia. She is feeling as though she has some reflux. We will offer her Chloraseptic [place] as she has also indicated that she has some pain with swallowing. Add on a PPI. Speech has been consulted. Maintain diet at mechanical soft for now and thin liquids. If the patient has any trouble with choking she will need to be placed n.p.o. and her aspirin changed to per rectum. - Time Time Spent with patient: 25-34 minutes - Inpatient Certification Medical Necessity: Need Close Monitoring Due to Risk of Patient Decompensation
[2016-11-19] MEDS ORDERED: HALOPERIDOL LACTATE INJ 5 MG/1 ML VIAL IV ONE (17:59)
[2016-11-19] MEDS ORDERED: HALOPERIDOL LACTATE INJ 5 MG/1 ML VIAL ONE (18:03)
[2016-11-19] MEDS: PANTOPRAZOLE SODIUM 40 MG VIAL IV SCH (22:47)
[2016-11-19] MEDS: GABAPENTIN 100 MG CAPSULE PO SCH (22:54)
[2016-11-19] MEDS: ATORVASTATIN CALCIUM 20 MG TABLET PO SCH (22:54)
[2016-11-20] MEDS: GABAPENTIN 100 MG CAPSULE PO SCH ×3 (05:27→21:20)
[2016-11-20] MEDS: VANCOMYCIN HCL 750 MG in DEXTROSE 5%-WATER 250 ML IV SCH (05:29)
[2016-11-20 06:44] LABS: CHOLESTEROL 156.74 mg/dL (0-200); Direct HDL 37 mg/dL (>40); TRIGLYCERIDES 90 mg/dL (<150)
[2016-11-20 06:54] LABS: DIRECT LDL 97 mg/dL (<100)
[2016-11-20] MEDS: LISINOPRIL 5 MG TABLET PO SCH (08:53)
[2016-11-20] MEDS: DULOXETINE HCL 30 MG CAPSULE.DR PO SCH (08:53)
[2016-11-20] MEDS: OXYCODONE HCL IR 5 MG TABLET PO PRN ×3 (08:53→18:19)
[2016-11-20] MEDS: SERTRALINE HCL 50 MG TABLET PO SCH (08:53)
[2016-11-20] MEDS ORDERED: MAGNESIUM HYDROXIDE SUSP 30 ML UDCUP PO PRN (11:30)
[2016-11-20] MEDS: ENOXAPARIN SODIUM INJ 40 MG/0.4 ML DISP.SYRIN SUBCUT SCH (11:45)
[2016-11-20] MEDS: CLOPIDOGREL BISULFATE 75 MG TABLET PO SCH (11:45)
[2016-11-20] MEDS: PANTOPRAZOLE SODIUM 40 MG VIAL IV SCH ×2 (11:46→21:15)
[2016-11-20] MEDS: ASPIRIN 325 MG TABLET PO SCH (11:46)
[2016-11-20] MEDS: MAGNESIUM OXIDE 400 MG TABLET PO SCH ×2 (11:46→18:19)
--- NOTE | 2016-11-20 12:32 | RADIOLOGY REPORT (SQ) ---
EXAM DESCRIPTION: CAROTID DOPPLER COMPLETED DATE/TIME: 11/20/2016 10:53 am REASON FOR STUDY: new stroke COMPARISON: CT brain 07/23/2016, 11/15/2016 MRI brain and [place] of [place] 11/18/2016 TECHNIQUE: Grayscale ultrasound, Doppler velocity and spectra, and color Doppler images acquired of the extra-cranial carotid and vertebral arteries. Images stored on PACS. LIMITATIONS: None. FINDINGS: RIGHT CAROTID CCA Velocities: Within normal limits. ICA Velocities Peak systolic 0.9 m/s. End diastolic 0.3 m/s. Proximal ICA/CCA peak systolic ratio 0.9. Spectra normal. No significant plaque. LEFT CAROTID CCA Velocities: Within normal limits. ICA Velocities Peak systolic 0.66 m/s. End diastolic 0.16 m/s. Proximal ICA/CCA peak systolic ratio 1.2. Spectra normal. No significant plaque. VERTEBRAL ARTERIES: Antegrade flow. Normal waveforms. SUBCLAVIAN ARTERIES: Not evaluated OTHER: No other significant finding. IMPRESSION: NO HEMODYNAMICALLY SIGNIFICANT STENOSIS. COMMENT: Quality ID #195: Velocity criteria are extrapolated from the diameter data as defined by t he Society of Radiologists in Ultrasound Consensus Conference. Radiology 2003: 229; 340-346. TECHNICAL DOCUMENTATION: JOB ID: [id number] [employer]- All Rights Reserved
[2016-11-20] MEDS: DOCUSATE SODIUM 100 MG CAPSULE PO SCH ×2 (12:33→18:19)
[2016-11-20] MEDS: NORMAL SALINE 1000 ML 1,000 ML IV PRN (14:05)
--- NOTE | 2016-11-20 14:56 | PDOC PROGRESS REPORT ---
Subjective Progress Note for:: 11/20/16 Subjective:: This is a follow-up visit acute stroke. The patient was initially admitted for confusion and acute encephalopathy. It was suspected on admission that she likely had a urinary tract infection. Initial CAT scan of the head was negative. Blood cultures and urine cultures were done. However, these resulted in negative studies for the urine culture and coagulase negative organism in the blood cultures not consistent with a true infection. On day 2 of the patient's hospital stay she developed difficulty speaking. MRI of the brain was obtained which showed left MCA stroke. Neurology has been consulted and left a note in the patient's bedside chart agreeing with current management. The patient became combative yesterday afternoon. She was noted to swing at the nurses, kick at the nurses and bite. She was given 2 doses of Haldol IV which seemed to calm her down. This morning at the bedside the patient is both sad and happy during the interview. She still has trouble getting out her words. It seems as though when she is most angry is when she is able to get complete sentences out. The patient had difficulty being still for her MRI/ MRA. Her carotid Dopplers and cardiac echo are currently being done at the bedside. Physical Exam Vital Signs: Temp Pulse Resp BP Pulse Ox 98.8 F 84 20 111/64 100 11/20/16 08:23 11/20/16 08:23 11/20/16 08:23 11/20/16 08:23 11/20/16 08:23 Intake & Output 11/19/16 11/20/16 11/21/16 06:59 06:59 06:59 Intake Total 2490 1730 Balance 2490 1730 Weight 65 kg 60.2 kg GENERAL: This is a well-developed thin appearing white female resting in bed in no acute distress but occasionally appearing frustrated while moment and happy the next.. HEART: Regular rate and rhythm. No murmurs, rubs or gallops. LUNGS: Clear to auscultation bilaterally with equal rise and fall of the chest. ABDOMEN: Soft, nontender, nondistended with normoactive bowel sounds EXTREMETIES: No clubbing, cyanosis or edema. 2+ peripheral pulses bilaterally. NEURO: Awake, alert. The patient does follow commands quite well. Initially the patient refuses to speak with me. As the interview progresses and we discussed her behavior yesterday, the patient is able to get out the words yes and no. When she becomes more frustrated she is able to get out a complete sentence. Most of the sentences she is able to get out are clear. occasionally however she has some word salad. Results Laboratory Results: 11/18/16 05:35 11/19/16 05:38 11/20/16 05:33 Triglycerides 90 Cholesterol 156.74 LDL Cholesterol Direct 97 VLDL Cholesterol 18.0 HDL Cholesterol 37 L 11/16/16 11/16/16 03:11 09:06 Troponin I 0.065 0.069 Impressions: Chest X-Ray 11/15/16 00:00 IMPRESSION: No interval change in the chest. No acute findings. Head CT 11/15/16 00:00 IMPRESSION: 1. No acute intracranial event. 2. 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 Head MRI 11/18/16 00:00 IMPRESSION: 1. 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 EVIDENCE OF ACUTE STROKE: YES. LEFT MCA Brain MRI with MRA 11/19/16 00:00 IMPRESSION: Technically limited study. No obvious stenosis or aneurysm. Neck MRA 11/19/16 00:00 IMPRESSION: Technically limited study. No obvious significant stenosis. Assessment & Plan - Diagnosis (1) Acute ischemic left MCA stroke Is this a current diagnosis for this admission?: Yes Plan: The patient has been started on aspirin and Plavix. MRA of the head and neck have been ordered and show a very limited study due to motion artifact. From what the radiologist can see it does not appear to be any stenosis in the neck or obvious lesions in the [place] of [place]. The patient still has expressive aphasia. Speech has been seen her today and feels that she is safe for diet without restrictions. Will also consult PT and OT. Atorvastatin has been included in the patient's medications. In terms of going home, I think that the patient will be ready for discharge by tomorrow or the day after. The reason for the delay is because of patient safety - Especially in light of her combative episode yesterday. I do not suspect that she will need placement in a nursing facility; however, I do think she will need additional care at home. Her son is due to come into town tonight or tomorrow. I have encouraged her daughter to discuss living arrangements so that the patient may be safely discharged within the next 24 hours. I would like her assessed by PT and OT first. (2) Bacteremia Plan: Patient is on cefepime and vancomycin. Cultures revealed coagulase-negative staph which is likely a contaminant. Discontinue cefepime and vancomycin. Bacteremia has been ruled out. (3) Acute encephalopathy Is this a current diagnosis for this admission?: Yes Plan: Resolved. do suspect, however, that the patient may have some element of owning which would explain her behavior yesterday. I also question as to whether or not some of her frontal lobe was included in her stroke and could account for any personality changes that we may see at the bedside. The patient may have Haldol as needed. Hopefully, she will not act out again. (4) Elevated troponin Is this a current diagnosis for this admission?: Yes Plan: This is marginally elevated. (5) UTI (urinary tract infection) Qualifiers: Urinary tract infection type: site unspecified Is this a current diagnosis for this admission?: Yes Plan: Urinary tract infection has been ruled out. Patient was treated with Rocephin as an outpatient. Repeat cultures here are currently negative. (6) Diabetes mellitus type 2 in nonobese Is this a current diagnosis for this admission?: Yes Plan: Continue current medications. (7) Immunosuppressed due to chemotherapy Is this a current diagnosis for this admission?: Yes Plan: Follow-up as an outpatient. (8) Malignant neoplasm of ovary Plan: Continue to follow-up as an outpatient. (9) Anemia Qualifiers: Anemia type: unspecified type Qualified Code(s): D64.9 - Anemia, unspecified Is this a current diagnosis for this admission?: Yes Plan: Stable. (10) Dysphasia Plan: The patient has expressed odynophagia and dysphagia. She has been evaluated by speech therapy. She does not seem to have a swallowing deficit. - Time Time Spent with patient: 25-34 minutes - Inpatient Certification Medical Necessity: Significant Comorbidiites Make Outpatient Treatment Too Risky
[2016-11-20] MEDS: ATORVASTATIN CALCIUM 20 MG TABLET PO SCH (21:19)
[2016-11-21] MEDS: GABAPENTIN 100 MG CAPSULE PO SCH ×3 (05:17→21:44)
[2016-11-21] MEDS: NORMAL SALINE 1000 ML 1,000 ML IV PRN (05:20)
[2016-11-21] MEDS: DULOXETINE HCL 30 MG CAPSULE.DR PO SCH (08:11)
[2016-11-21] MEDS: SERTRALINE HCL 50 MG TABLET PO SCH (08:11)
[2016-11-21] MEDS: OXYCODONE HCL IR 5 MG TABLET PO PRN ×3 (08:11→17:03)
[2016-11-21] MEDS: LISINOPRIL 5 MG TABLET PO SCH (08:12)
[2016-11-21] MEDS ORDERED: MAG HYDROX/AL HYDROX/SIMETH SUSP 30 ML UDCUP PO ONE (11:15)
[2016-11-21] MEDS ORDERED: SENNOSIDES/DOCUSATE 8.6-50 MG 1 EACH TABLET PO ONE (11:15)
[2016-11-21] MEDS ORDERED: LIDOCAINE 2% VISCOUS SOLN 20 ML UDCUP PO ONE (11:15)
[2016-11-21] MEDS ORDERED: LANSOPRAZOLE 30 MG TAB.RAP.DR PO ONE (11:15)
[2016-11-21] MEDS: MAGNESIUM OXIDE 400 MG TABLET PO SCH ×2 (11:28→17:04)
[2016-11-21] MEDS: ASPIRIN 325 MG TABLET PO SCH (11:31)
[2016-11-21] MEDS: CLOPIDOGREL BISULFATE 75 MG TABLET PO SCH (11:32)
[2016-11-21] MEDS: ENOXAPARIN SODIUM INJ 40 MG/0.4 ML DISP.SYRIN SUBCUT SCH (11:32)
[2016-11-21] MEDS: DOCUSATE SODIUM 100 MG CAPSULE PO SCH ×2 (11:42→17:04)
[2016-11-21] MEDS: LANSOPRAZOLE 30 MG TAB.RAP.DR PO SCH (17:04)
--- NOTE | 2016-11-21 19:28 | PDOC PROGRESS REPORT ---
Subjective Progress Note for:: 11/21/16 Subjective:: Patient is having some cough associated with clear sputum. Reports she receives something through her IV which improved her cough yesterday. Patient denies chest pain, shortness of breath, abdominal pain, nausea, vomiting , fevers, chills, diarrhea, constipation, headache, new onset weakness. Physical Exam Vital Signs: Temp Pulse Resp BP Pulse Ox 98.4 F 73 16 130/59 H 98 11/21/16 15:27 11/21/16 15:27 11/21/16 15:27 11/21/16 15:27 11/21/16 15:27 Intake & Output 11/20/16 11/21/16 11/22/16 06:59 06:59 06:59 Intake Total 1730 1141 600 Balance 1730 1141 600 Weight 65 kg 60.2 kg Exam: General: Awake alert and orientedx3, no acute respiratory distress HEENT: AT/NC, PERRL, EOMI, oropharynx is moist, pink, no scleral icterus, no conjunctival injection Neck: No JVD, trachea midline Chest: Clear to auscultation bilaterally, no wheezes rhonchi or rales CV: Regular rate and rhythm, normal S1 and S2, no rub, or gallop; 3/6 sm rusb Abdomen: Soft, nontender to palpation, nondistended, active bowel sounds; no rebound, rigidity, or guarding Extremities: No cyanosis, clubbing or edema Neuro: Cranial nerves II through XII are grossly intact without focal deficits; awake alert and oriented x3 Psych: Normal mood and affect Results Laboratory Results: 11/18/16 05:35 11/19/16 05:38 11/16/16 11/16/16 03:11 09:06 Troponin I 0.065 0.069 Impressions: Chest X-Ray 11/15/16 00:00 IMPRESSION: No interval change in the chest. No acute findings. Head CT 11/15/16 00:00 IMPRESSION: 1. No acute intracranial event. 2. 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 Head MRI 11/18/16 00:00 IMPRESSION: 1. 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 EVIDENCE OF ACUTE STROKE: YES. LEFT MCA Brain MRI with MRA 11/19/16 00:00 IMPRESSION: Technically limited study. No obvious stenosis or aneurysm. Neck MRA 11/19/16 00:00 IMPRESSION: Technically limited study. No obvious significant stenosis. Carotid Doppler Study 11/20/16 00:00 IMPRESSION: NO HEMODYNAMICALLY SIGNIFICANT STENOSIS. Assessment & Plan - Diagnosis (1) Acute ischemic left MCA stroke Is this a current diagnosis for this admission?: Yes (2) Dysphasia Is this a current diagnosis for this admission?: Yes Plan: Improve secondary to CVA (3) Hypomagnesemia Is this a current diagnosis for this admission?: Yes (4) UTI (urinary tract infection) Qualifiers: Urinary tract infection type: site unspecified Is this a current diagnosis for this admission?: Yes (5) Diabetes mellitus type 2 in nonobese Is this a current diagnosis for this admission?: Yes (6) Immunosuppressed due to chemotherapy Is this a current diagnosis for this admission?: Yes (7) Malignant neoplasm of ovary Qualifiers: Laterality: unspecified laterality Qualified Code(s): C56.9 - Malignant neoplasm of unspecified ovary Is this a current diagnosis for this admission?: Yes (8) Anemia Qualifiers: Anemia type: unspecified type Qualified Code(s): D64.9 - Anemia, unspecified Is this a current diagnosis for this admission?: Yes - Time Time Spent with patient: 25-34 minutes Medications reviewed and adjusted accordingly: Yes Anticipated discharge: Acute Rehab Within: when bed available - Plan Summary Plan Summary: Patient found to have acute frontal left-sided infarct. Patient has history of atrial fibrillation and is not on anticoagulation she does report an episode previously of requiring hospitalization and blood transfusion for anemia. Suspect patient had previous GI bleed. Patient suffering from significant GERD symptoms and will continue patient on PPI twice daily. Have discussed CODE STATUS at length with daughter and patient. They have not made a decision at this time. And for her ovarian cancer, patient understands that if she goes to rehab she will likely not receive chemotherapy there. Patient's daughter reports that she is receiving a low-dose chemotherapy. They will discuss whether patient will go home with home health to resume her chemotherapy or she will go to rehab for ongoing improvement of her stroke symptoms prior to return to normal function.
[2016-11-21] MEDS: ATORVASTATIN CALCIUM 20 MG TABLET PO SCH (21:43)
[2016-11-21] MEDS: LORATADINE 10 MG TABLET PO SCH (21:44)
[2016-11-21] MEDS: FLUTICASONE NASAL SPRAY 50 MCG/SPRY 120 SPRAY/16 GM NASL SCH (21:46)
[2016-11-21] MEDS: SENNOSIDES/DOCUSATE 8.6-50 MG 1 EACH TABLET PO SCH (21:46)
[2016-11-22] MEDS: GABAPENTIN 100 MG CAPSULE PO SCH ×3 (06:19→21:38)
[2016-11-22] MEDS: LANSOPRAZOLE 30 MG TAB.RAP.DR PO SCH ×2 (06:19→16:58)
[2016-11-22] MEDS: SERTRALINE HCL 50 MG TABLET PO SCH (07:51)
[2016-11-22] MEDS: LISINOPRIL 5 MG TABLET PO SCH (07:51)
[2016-11-22] MEDS: DULOXETINE HCL 30 MG CAPSULE.DR PO SCH (07:51)
[2016-11-22] MEDS: OXYCODONE HCL IR 5 MG TABLET PO PRN ×3 (07:51→16:58)
[2016-11-22] MEDS: ENOXAPARIN SODIUM INJ 40 MG/0.4 ML DISP.SYRIN SUBCUT SCH (11:43)
[2016-11-22] MEDS: ASPIRIN 325 MG TABLET PO SCH (11:43)
[2016-11-22] MEDS: CLOPIDOGREL BISULFATE 75 MG TABLET PO SCH (11:44)
[2016-11-22] MEDS: MAGNESIUM OXIDE 400 MG TABLET PO SCH ×2 (11:44→17:08)
[2016-11-22] MEDS: DOCUSATE SODIUM 100 MG CAPSULE PO SCH ×2 (11:44→16:48)
[2016-11-22] MEDS: FLUTICASONE NASAL SPRAY 50 MCG/SPRY 120 SPRAY/16 GM NASL SCH ×2 (11:48→21:38)
--- NOTE | 2016-11-22 17:21 | PDOC PROGRESS REPORT ---
Subjective Progress Note for:: 11/22/16 Subjective:: Patient reports she is feeling better. She reports that she would like to go to rehab but also continue her chemotherapy which has happened for her previously in [place]. I have informed her that we will have discharge planning look into this. Patient denies chest pain, shortness of breath, abdominal pain, nausea, vomiting , fevers, chills, diarrhea, headache, new onset weakness. Physical Exam Vital Signs: Temp Pulse Resp BP Pulse Ox 98.0 F 105 H 18 122/65 100 11/22/16 03:43 11/22/16 03:43 11/22/16 03:43 11/22/16 03:43 11/22/16 03:43 Intake & Output 11/21/16 11/22/16 11/23/16 06:59 06:59 06:59 Intake Total 1141 1305 Balance 1141 1305 Weight 60.2 kg 65.1 kg Exam: General: Awake alert and orientedx3, no acute respiratory distress HEENT: AT/NC, PERRL, EOMI, oropharynx is moist, pink, no scleral icterus, no conjunctival injection Neck: No JVD, trachea midline Chest: Rhonchi left lower lobe CV: Regular rate and rhythm, normal S1 and S2, no rub, or gallop; 3/6 sm rusb Abdomen: Soft, nontender to palpation, nondistended, active bowel sounds; no rebound, rigidity, or guarding Extremities: No cyanosis, clubbing or edema Neuro: Cranial nerves II through XII are grossly intact without focal deficits; awake alert and oriented x3 Psych: Normal mood and affect Results Laboratory Results: 11/18/16 05:35 11/19/16 05:38 11/16/16 11/16/16 03:11 09:06 Troponin I 0.065 0.069 Impressions: Chest X-Ray 11/15/16 00:00 IMPRESSION: No interval change in the chest. No acute findings. Head CT 11/15/16 00:00 IMPRESSION: 1. No acute intracranial event. 2. 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 Head MRI 11/18/16 00:00 IMPRESSION: 1. 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 EVIDENCE OF ACUTE STROKE: YES. LEFT MCA Brain MRI with MRA 11/19/16 00:00 IMPRESSION: Technically limited study. No obvious stenosis or aneurysm. Neck MRA 11/19/16 00:00 IMPRESSION: Technically limited study. No obvious significant stenosis. Carotid Doppler Study 11/20/16 00:00 IMPRESSION: NO HEMODYNAMICALLY SIGNIFICANT STENOSIS. Assessment & Plan - Diagnosis (1) Acute ischemic left MCA stroke Is this a current diagnosis for this admission?: Yes (2) Dysphasia Is this a current diagnosis for this admission?: Yes (3) Hypomagnesemia Is this a current diagnosis for this admission?: Yes (4) UTI (urinary tract infection) Qualifiers: Urinary tract infection type: site unspecified Is this a current diagnosis for this admission?: Yes (5) Diabetes mellitus type 2 in nonobese Is this a current diagnosis for this admission?: Yes (6) Immunosuppressed due to chemotherapy Is this a current diagnosis for this admission?: Yes (7) Malignant neoplasm of ovary Qualifiers: Laterality: unspecified laterality Qualified Code(s): C56.9 - Malignant neoplasm of unspecified ovary Is this a current diagnosis for this admission?: Yes (8) Anemia Qualifiers: Anemia type: unspecified type Qualified Code(s): D64.9 - Anemia, unspecified Is this a current diagnosis for this admission?: Yes - Time Time Spent with patient: 25-34 minutes Medications reviewed and adjusted accordingly: Yes Anticipated discharge: Acute Rehab Within: when bed available - Plan Summary Plan Summary: At this time, feel the patient likely had an acute embolic CVA secondary to underlying atrial fibrillation. Patient currently is unable to be anticoagulated due to her prior history of GI bleed resulting in need for hospitalization and blood transfusion. I have discussed with her daughter that patient continues to be at risk for ongoing emboli. Carotid Doppler is negative. Patient suffering from significant GERD symptoms and will continue patient on PPI twice daily. In light of patient's new congested cough, and GERD symptoms have concern for aspiration pneumonia. Will obtain a chest x- ray. Otherwise, patient reports her cough has improved from yesterday. Patient is stable for discharge to rehab once bed is established for her.
--- NOTE | 2016-11-22 18:14 | RADIOLOGY REPORT (SQ) ---
EXAM DESCRIPTION: CHEST PA/LAT COMPLETED DATE/TIME: 11/22/2016 6:07 pm REASON FOR STUDY: cough COMPARISON: 11/15/2016 EXAM PARAMETERS: NUMBER OF VIEWS: two views TECHNIQUE: Digital Frontal and Lateral radiographic views of the chest acquired. RADIATION DOSE: NA LIMITATIONS: Low lung volumes. FINDINGS: LUNGS AND PLEURA: There is elevated right and left hemidiaphragms. This accentuated by lo w lung volumes. There is bibasilar atelectasis. There has been no change from prior study. MEDIASTINUM AND HILAR STRUCTURES: No masses or contour abnormalities. HEART AND VASCULAR STRUCTURES: Unchanged. BONES: No acute findings. HARDWARE: None in the chest. OTHER: No other significant finding. IMPRESSION: Low lung volumes with basilar atelectasis. Similar findings were present on prior exam. TECHNICAL DOCUMENTATION: JOB ID: [id number] [employer]- All Rights Reserved
[2016-11-22] MEDS: LORATADINE 10 MG TABLET PO SCH (21:39)
[2016-11-22] MEDS: ATORVASTATIN CALCIUM 20 MG TABLET PO SCH (21:39)
[2016-11-22] MEDS: SENNOSIDES/DOCUSATE 8.6-50 MG 1 EACH TABLET PO SCH (21:39)
--- NOTE | 2016-11-22 23:27 | Palliative Consultation Report ---
Consultation From:: ANA LAURA MENDEZ - [facility] HPI: Palliative Care Visit 11/22/16 12:30-12;55 PM Appreciate palliative consult request for this 81 year old woman who has been admitted following CVA. She has dysphagia and some aphsia which has resolved some. She also has comorbid conditions of Atrial Fib and GERD. She is still undergoing treatment for ovarian cancer. In the past, patient has refused to let home health staff in her home. SHe refuses now. Plans are being made for her to go to a SNF for rehab. She wants to go to [facility] [place] to be closer to her oncologist. We discussed the SNF's who have beds available as to location etc. Patient denied any pain and was eating lunch without noted dysphagia. However, she did have some productive coughing after eating. Her daughter said she has been doing this but she refuses pureed foods or thickened liquids. I attempted to discuss advance directives with patient but she put up both hands, shook her head and said NO loudly to me. I told her that was fine, that her wishes would not be known and the staff will just do what they assume she wants done. Her daughter said she never will discuss this. many words were noted to be well spoken and she is moving her arms well. No respiratory distress noted, just some shortness of breath after coughing.. Onset: Just prior to arrival Onset/Duration: Sudden, Gradual Quality of Pain: No pain Associated Symptoms: Weakness Past Medical History(Consults) - General Information Source: Patient, Relative, [facility] Records Home Medications: Celecoxib [Celebrex 100 mg Capsule] 100 mg PO [id number] 11/16/16 Cyclobenzaprine HCl [Flexeril 10 mg Tablet] 10 mg PO HSP PRN 11/16/16 Diltiazem HCl [Diltiazem 12Hr ER] 60 mg PO Q12HP PRN 11/16/16 Duloxetine HCl [Cymbalta] 60 mg PO QAM 11/16/16 Lisinopril [Prinivil 2.5 mg Tablet] 2.5 mg PO QAM 11/16/16 Metformin HCl [Metformin HCl ER] 500 mg PO QHS 11/16/16 Oxycodone HCl [Oxy-Ir 5 mg Tablet] 5 mg PO Q4HP PRN 11/16/16 Sertraline HCl [Zoloft 50 mg Tablet] 50 mg PO QAM 11/16/16 Tramadol HCl [Ultram 50 mg Tablet] 50 mg PO Q8HP PRN 11/16/16 Allergies/Adverse Reactions: levofloxacin [From Levaquin] Allergy (Intermediate, Verified 07/23/16 17:14) Hives Sulfa (Sulfonamide Antibiotics) Allergy (Intermediate, Verified 07/23/16 17:14) Hives codeine [Codeine] Allergy (Verified 07/23/16 17:14) morphine Allergy (Verified 07/23/16 17:14) Penicillins Allergy (Verified 11/16/16 01:05) Quinazolinones Allergy (Verified 07/23/16 17:14) - Social History Family History: Hypertension, Malignancy Parental Family History Reviewed: No Children Family History Reviewed: No Sibling(s) Family History Reviewed.: No Smoking Status: Former Smoker Frequency of Alcohol Use: None Hx Recreational Drug Use: No Drugs: None Hx Prescription Drug Abuse: No - Past Medical History Cardiac Medical History: Reports: Hx Atrial Fibrillation, Hx Hypertension Denies: Hx Congestive Heart Failure, Hx Coronary Artery Disease, Hx DVT, Hx Heart Attack, Hx Hypercholesterolemia, Hx Pulmonary Embolism Pulmonary Medical History: Reports: Hx Bronchitis, Hx Pneumonia, Hx Respiratory Failure, Hx Sleep Apnea - Noncompliant with CPAP mask due to claustrophobia Denies: Hx Asthma, Hx COPD EENT Medical History: Reports: Eyes - Glasses, Ears - Partial hearing loss Denies: Throat Neurological Medical History: Denies: Hx Cerebrovascular Accident, Hx Seizures Endocrine Medical History: Denies: Hx Diabetes Mellitus Type 1, Hx Hyperthyroidism, Hx Hypothyroidism Renal/ Medical History: Reports: Other - Occasional urinary tract infection. Denies: Hx Peritoneal Dialysis Malignancy Medical History: Reports: Hx Ovarian Cancer - Currently undergoing chemotherapy for same GI Medical History: Reports: Hx Gastroesophageal Reflux Disease. Denies: Hx Cirrhosis, Hx Hepatitis Musculoskeltal Medical History: Reports Hx Arthritis, Reports Hx Fibromyalgia, Reports Hx Musculoskeletal Deformity Skin Medical History: Reports None Psychiatric Medical History: Reports: Hx Depression - Mild intermittent Infectious Medical History: Denies: Hx Hepatitis Hematology: Reports: Anemia, Other - Easy bruising - Surgical History Past Surgical History: Reports: Hx Abdominal Surgery, Hx Cholecystectomy, Hx Herniorrhaphy, Hx Orthopedic Surgery - l knee - Immunizations Immunizations up to date: Yes Review of systems Constitutional: Weakness Cardiovascular: Heart racing Respiratory: Cough, Short of breath Gastrointestinal: Poor appetite Hematologic/Lymphatic: Easy bruising Neurological/Psychological: Anxiety, Weakness Ojective:Exam Vital Signs: Temp Pulse Resp BP Pulse Ox 98.8 F 86 19 131/58 H 100 11/22/16 19:50 11/22/16 19:50 11/22/16 19:50 11/22/16 19:50 11/22/16 19:50 Intake & Output 11/21/16 11/22/16 11/23/16 06:59 06:59 06:59 Intake Total 1141 1305 450 Balance 1141 1305 450 Weight 60.2 kg 65.1 kg - General General Appearance: Alert, Anxious In distress: None - Respiratory Respiratory Status: No respiratory distress Breath sounds: Rhonchi Respiratory Notes: Cough after eating/drinking - Cardiovascular Rhythm: Irregularly irregular - Abdominal Inspection: Normal Distension: No distension - Neurological Cognition: Normal Orientation: Alert, Oriented to person, Oriented to place Speech: Normal Motor exam: Weakness - Psychological Associated symptoms: Anxious Objective-Diagnostic Laboratory: 11/18/16 05:35 11/19/16 05:38 11/16/16 11/16/16 03:11 09:06 Troponin I 0.065 0.069 Plan and Recommendation Plan and Recommendation: Conversation about need for SNF for rehab since patient lives alone and will not accept help from Home health. Daughter has MS and cannot care for patient. Discussed various SNF s in [place] near her oncology office. PAtient agreeable, but not happy to go. Consulted with corporate planner and Dr. Combs. Patient denies pain or other symptoms, appetite is returning. She is probably aspirating due to dysphagia, cough after eating, But patient refuses dietary modifications. Attempted to discuss DNR, especially in light of dysphagia, but patient refused to discuss and became angry with me. Daughter seems to be aware of situation and may quide treatment if respiratory or cardiac failure occurs. Unfortunately, I was not able to assist with advance directives. I gave daughter information about having [facility] follow patient at the SNF after discharge. - Time Spent with Patient Time spent with patient: 15 to 30 Minutes Time: 25 min
[2016-11-23] MEDS: GABAPENTIN 100 MG CAPSULE PO SCH ×2 (05:57→14:43)
[2016-11-23] MEDS: LANSOPRAZOLE 30 MG TAB.RAP.DR PO SCH (05:57)
[2016-11-23] MEDS: OXYCODONE HCL IR 5 MG TABLET PO PRN ×2 (08:52→14:43)
[2016-11-23] MEDS: SERTRALINE HCL 50 MG TABLET PO SCH (08:52)
[2016-11-23] MEDS: DULOXETINE HCL 30 MG CAPSULE.DR PO SCH (08:52)
[2016-11-23] MEDS: LISINOPRIL 5 MG TABLET PO SCH (08:52)
--- NOTE | 2016-11-23 10:45 | PDOC TRANSFER SUMMARY ---
General - Admit/Disc Date/PCP Admission Date/Primary Care Provider: 11/16/16 01:06 RENE العراقي MD Discharge Date: 11/23/16 - Discharge Diagnosis (1) Acute ischemic left MCA stroke Is this a current diagnosis for this admission?: Yes (2) Dysphasia Is this a current diagnosis for this admission?: Yes (3) Hypomagnesemia Is this a current diagnosis for this admission?: Yes (4) UTI (urinary tract infection) Is this a current diagnosis for this admission?: Yes (5) Diabetes mellitus type 2 in nonobese Is this a current diagnosis for this admission?: Yes (6) Immunosuppressed due to chemotherapy Is this a current diagnosis for this admission?: Yes (7) Malignant neoplasm of ovary Is this a current diagnosis for this admission?: Yes (8) Anemia Is this a current diagnosis for this admission?: Yes - Additional Information Resuscitation Status: Full Code Discharge Diet: Regular Discharge Activity: Activity As Tolerated, Slowly Increase Activity, Supervised Activity Home Medications: Duloxetine HCl [Cymbalta] 60 mg PO QAM 11/16/16 Lisinopril [Prinivil 2.5 mg Tablet] 2.5 mg PO QAM 11/16/16 Aspirin [Aspirin 325 mg Tablet] 325 mg PO DAILY tablet 11/23/16 Atorvastatin Calcium [Lipitor 20 mg Tablet] 20 mg PO QHS tablet 11/23/16 Clopidogrel Bisulfate [Plavix 75 mg Tablet] 75 mg PO DAILY tablet 11/23/16 Cyclobenzaprine HCl [Flexeril 10 mg Tablet] 10 mg PO HSP PRN #3 tablet 11/23/16 Dexlansoprazole [Dexilant] 30 mg PO DAILY #30 bp 11/23/16 Docusate Sodium [Colace 100 mg Capsule] 100 mg PO BID capsule 11/23/16 Doxycycline Hyclate 100 mg PO BID #14 capsule 11/23/16 Fluticasone Propionate [Flonase Nasal [place] 50 Mcg/[place] 16 gm] 1 spray NASL Q12 spray.pump 11/23/16 Loratadine [Claritin 10 mg Tablet] 10 mg PO QHS tablet 11/23/16 Magnesium Oxide [Mag-Ox 400 mg Tablet] 400 mg PO BID tablet 11/23/16 Oxycodone HCl [Oxy-Ir 5 mg Tablet] 5 mg PO Q4HP PRN #10 tablet 11/23/16 Sennosides/Docusate 8.6-50 mg [Senna Plus Tablet] 2 each PO QHS tablet Sertraline HCl [Zoloft 50 mg Tablet] 50 mg PO QAM tablet 11/23/16 Tramadol HCl [Ultram 50 mg Tablet] 50 mg PO Q8HP PRN #10 tablet 11/23/16 History of Present Illness Admission Date/PCP: 11/16/16 01:06 RENE العراقي MD History of Present Illness: NICCI GUAJARDO is a 81 year old female with underlying type 2 diabetes mellitus, pulmonary hypertension, arthritis, obstructive sleep apnea, noncompliant with treatment due to claustrophobia, mild reflux, mild depression , without suicidal or homicidal ideation, hypertension, and currently undergoing chemotherapy for ovarian carcinoma, who presents to the emergency room for evaluation of above complaint. Patient has been discussed with emergency room physician who evaluated the patient. Patient is intermittently confused, though improved, per daughter, who is present at her side with patient's approval, and is able to provide little history whatsoever in terms of acute or chronic events, review of systems , personal habits, family history, etc. no old inpatient records available for review. Over the last 24 hours, slowly progressive confusion. Daughter states that normally her mother is quite mentally sharp and does not carry a diagnosis of dementia. She states this is patient's usual presentation when she developed a urinary tract infection. Finished a course of Rocephin 10 days ago for Pseudomonas urinary tract infection. There is been no chest or abdominal pain, nausea vomiting or diarrhea, fever or chills. Chronic cough, productive of clear sputum, without recent change. Emergency room physician did speak with patient's oncologist, Dr. Reba Lew in [place]. Oncologist knows her quite well, and states this is patient's usual presentation for urosepsis. States due to her last chemotherapy session being Sunday of last week, her white count would not expected to be elevated. She felt that certainly patient should be admitted and placed on IV antibiotics. As noted above, since receiving a dose of cefepime, daughter states the patient , while still somewhat confused, is much more mentally alert and appropriate and prior to the antibiotics. Hospital Course Hospital Course: The patient was initially admitted for confusion and acute encephalopathy. It was suspected on admission that she likely had a urinary tract infection. Initial CAT scan of the head was negative. Blood cultures and urine cultures were done. However, these resulted in negative studies for the urine culture and coagulase negative organism in the blood cultures not consistent with a true infection. On day 2 of the patient's hospital stay she developed difficulty speaking. MRI of the brain was obtained which showed left MCA stroke. Neurology has been consulted and left a note in the patient's bedside chart agreeing with current management. Patient was monitored on telemetry and has paroxysmal atrial fibrillation. Patient was started on ASA 325mg po daily and plavix 75mg po daily. patient has hx of GI bleed requiring transfusion per family, which was why she was was no longer anticoagulated due to this condition. Carotid doppler was negative. Echo done but not read at the time of DC. Patient had transient encephalopathy which was due to acute frontal lobe cva and possibly worsened by cefepime. Antibiotics were stopped and patient had no worsening of encephalopathy, actually improved and no increase in fever curve. Patient urine culture negative and blood culture contained contaminant. patient developed a slight cough that improved with prevacid. patient had a repeat cxr which revealed atelecatsis. Pt expressed a desire for both rehab and chemo. patient was accepted to subacute rehab where this can be done. Physical Exam Vital Signs: Temp Pulse Resp BP Pulse Ox 99.0 F 99 19 147/82 H 100 11/23/16 04:07 11/23/16 04:07 11/23/16 04:07 11/23/16 04:07 11/23/16 04:07 Intake & Output 11/22/16 11/23/16 11/24/16 06:59 06:59 06:59 Intake Total 1305 1160 Balance 1305 1160 Weight 65.1 kg 65 kg Exam: General: Awake alert and orientedx3, no acute respiratory distress HEENT: AT/NC, PERRL, EOMI, oropharynx is moist, pink, no scleral icterus, no conjunctival injection Neck: No JVD, trachea midline Chest: CTAB CV: Regular rate and rhythm, normal S1 and S2, no rub, or gallop; 3/6 sm rusb Abdomen: Soft, nontender to palpation, nondistended, active bowel sounds; no rebound, rigidity, or guarding Extremities: No cyanosis, clubbing or edema Neuro: Cranial nerves II through XII are grossly intact without focal deficits; awake alert and oriented x3 Psych: Normal mood and affect Results Laboratory Results: 11/18/16 05:35 11/19/16 05:38 11/16/16 11/16/16 03:11 09:06 Troponin I 0.065 0.069 Impressions: Head CT 11/15/16 00:00 IMPRESSION: 1. No acute intracranial event. 2. 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 Head MRI 11/18/16 00:00 IMPRESSION: 1. 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 EVIDENCE OF ACUTE STROKE: YES. LEFT MCA Brain MRI with MRA 11/19/16 00:00 IMPRESSION: Technically limited study. No obvious stenosis or aneurysm. Neck MRA 11/19/16 00:00 IMPRESSION: Technically limited study. No obvious significant stenosis. Carotid Doppler Study 11/20/16 00:00 IMPRESSION: NO HEMODYNAMICALLY SIGNIFICANT STENOSIS. Chest X-Ray 11/22/16 00:00 IMPRESSION: Low lung volumes with basilar atelectasis. Similar findings were present on prior exam. Status: Imported from PACS Transfer Plan - Time Spent with Patient Time spent with patient: Greater than 30 Minutes Qualifiers PATEINT BEING DISCHARGED WITH ANY OF THE FOLLOWING DIAGNOSIS?: Stroke Stroke Pt being discharged on Anti-thrombolytic therapy?: Yes Stroke Pt being discharged on Anti-coagulation therapy?: No Reason(s) for not prescribing Anti-coagulation therapy:: Adverse reaction to drug Stroke Pt being discharged on Statins?: Yes Plan Time Spent: Greater than 30 Minutes
[2016-11-23] MEDS ORDERED: DOXYCYCLINE HYCLATE 100 MG TABLET PO ONE (12:00)
[2016-11-23] MEDS: ENOXAPARIN SODIUM INJ 40 MG/0.4 ML DISP.SYRIN SUBCUT SCH (12:27)
[2016-11-23] MEDS: CLOPIDOGREL BISULFATE 75 MG TABLET PO SCH (12:28)
[2016-11-23] MEDS: MAGNESIUM OXIDE 400 MG TABLET PO SCH (12:28)
[2016-11-23] MEDS: ASPIRIN 325 MG TABLET PO SCH (12:28)
[2016-11-23] MEDS: DOCUSATE SODIUM 100 MG CAPSULE PO SCH (12:29)
[2016-11-23] MEDS: FLUTICASONE NASAL SPRAY 50 MCG/SPRY 120 SPRAY/16 GM NASL SCH (12:29)
[2016-11-23 13:26] VITALS: BP 120/78
[2016-11-23] MEDS ORDERED: DOXYCYCLINE HYCLATE 100 MG TABLET PO SCH (22:00)
--- NOTE | 2016-11-24 09:58 | XCELERA REPORT ---
[address] [address] Transthoracic Echocardiogram Report Name: NICCI GUAJARDO Age: 81 yrs Gender: Female : 1935 Patient Status: Inpatient Patient Location: [address] [place], [place] [address] Study Date: 11/20/2016 09:22 AM Height: 69 in Weight: 138 lb BSA: 1.8 m2 Procedure: A two-dimensional transthoracic echocardiogram with color flow and Doppler was performed. The study was technically difficult with many images being suboptimal in quality. Reason For Study: CVA History: CVA. Ordering Physician: KHRIS FRASER Performed By: Nelly Crystal Interpretation Summary There is no obvious cardiac source of embolus noted on this transthoracic echocardiogram. Follow-up with a JESUS is suggested if cardiac source is still suspected. The left ventricle is normal in size. There is normal left ventricular wall thickness. LV EF is > than 65% Left ventricular systolic function is normal. Doppler measurements suggest normal left ventricular diastolic function The left ventricular wall motion is normal. There is no thrombus. The right ventricle is mild to moderately dilated. There is mild right ventricular hypertrophy. The right ventricular systolic function is normal. The left atrial size is normal. There is no evidence of mitral valve prolapse. There is no mitral valve stenosis. There is a mild amount of mitral regurgitation There is no aortic valvular vegetation. There is mild aortic sclerosis without stenosis. There is no LVOT obstruction. No aortic regurgitation is present. There is no tricuspid stenosis. There is a mild to moderate amount of tricuspid regurgitation There is mild pulmonary hypertension by echo There is no pericardial effusion. There is no obvious cardiac source of embolus noted on this transthoracic echocardiogram. Follow-up with a JESUS is suggested if cardiac source is still suspected MMode/2D Measurements & Calculations RVDd: 4.2 cm LVIDd: 3.9 cm FS: 40.8 % Ao root diam: 2.9 cm IVSd: 1.1 cm LVIDs: 2.3 cm EDV(Teich): 65.5 ml LVPWd: 0.96 cm ESV(Teich): 18.2 ml Ao root area: 6.4 cm2 EF(Teich): 72.2 % LA dimension: 2.8 cm Doppler Measurements & Calculations MV E max selwyn: MV P1/2t max selwyn: Ao V2 max: LV V1 max P.5 cm/sec 77.5 cm/sec 145.1 cm/sec 6.9 mmHg MV A max selwyn: MV P1/2t: 58.1 msec Ao max PG: LV V1 max: 72.6 cm/sec 8.4 mmHg 131.3 cm/sec MV E/A: 1.1 MVA(P1/2t): 3.8 cm2 MV dec slope: 390.5 cm/sec2 MV dec time: 0.21 sec PA V2 max: TR max selwyn: 103.7 cm/sec 301.3 cm/sec PA max PG: TR max P.3 mmHg 4.3 mmHg Left Ventricle The left ventricle is normal in size. There is normal left ventricular wall thickness. LV EF is > than 65%. Left ventricular systolic function is normal. Doppler measurements suggest normal left ventricular diastolic function. The left ventricular wall motion is normal. There is no thrombus. Right Ventricle The right ventricle is mild to moderately dilated. There is mild right ventricular hypertrophy. The right ventricular systolic function is normal. Atria The right atrium is normal. The left atrial size is normal. Mitral Valve There is no evidence of mitral valve prolapse. There is no vegetation seen on the mitral valve. There is no mitral valve stenosis. There is a mild amount of mitral regurgitation. Aortic Valve There is no aortic valvular vegetation. There is mild aortic sclerosis without stenosis. There is no LVOT obstruction. No aortic regurgitation is present. Tricuspid Valve There is no tricuspid stenosis. There is a mild to moderate amount of tricuspid regurgitation. There is mild pulmonary hypertension by echo. Pulmonic Valve There is no pulmonic valvular stenosis. There is no pulmonic valvular regurgitation. Great Vessels The aortic root is normal size. Effusions There is no pericardial effusion. : KHRIS FRASER > Narcisa Colón
== END 2016-11-23 16:30 | DRG 689 ==
LOC: ER 17:10 → EH 22:28 → UNDOADMIN 22:28 → EH 11-16 00:41 → 5 11-16 00:41 → EH 11-16 01:06 → 5 11-16 01:06 → 3S 11-19 07:07 → 3W 11-19 19:12
PROVIDERS: ADMIT Family Medicine; ATTEND Family Medicine
PROC: 5A09357 Assistance with Respiratory Ventilation, Less than 24 Consecutive Hours, Continuous Positive Airway Pressure (ICD-10-PCS; principal; 2016-11-16)
PROC: 3E0F73Z Introduction of Anti-inflammatory into Respiratory Tract, Via Natural or Artificial Opening (ICD-10-PCS; 2016-11-16)
DX: N39.0 Urinary tract infection, site not specified (principal); I63.412 Cerebral infarction due to embolism of left middle cerebral artery; C56.9 Malignant neoplasm of unspecified ovary; R47.02 Dysphasia; E83.42 Hypomagnesemia; E11.9 Type 2 diabetes mellitus without complications; D64.9 Anemia, unspecified; I27.2 Other secondary pulmonary hypertension; M19.90 Unspecified osteoarthritis, unspecified site; G47.33 Obstructive sleep apnea (adult) (pediatric); F40.240 Claustrophobia; F32.9 Major depressive disorder, single episode, unspecified; I48.0 Paroxysmal atrial fibrillation; Z51.5 Encounter for palliative care; K21.9 Gastro-esophageal reflux disease without esophagitis; I10 Essential (primary) hypertension; F41.1 Generalized anxiety disorder; Z90.49 Acquired absence of other specified parts of digestive tract; Z87.891 Personal history of nicotine dependence; Z91.19 Patient's noncompliance with other medical treatment and regimen; Z79.82 Long term (current) use of aspirin; Z79.899 Other long term (current) drug therapy; Z88.6 Allergy status to analgesic agent; Z88.2 Allergy status to sulfonamides; Z88.0 Allergy status to penicillin; Z88.3 Allergy status to other anti-infective agents; Z80.9 Family history of malignant neoplasm, unspecified; Z82.49 Family history of ischemic heart disease and other diseases of the circulatory system
CPT/HCPCS: 36415; 70450; 70544; 70547; 70551; 71010; 71020; 80048; 80053; 80061; 80202; 80307; 81001; 82550; 82553; 82565; 82803; 82962; 83735; 84484; 85025; 85610; 85730; 87040; 87077; 87086; 87186; 93005; 93010; 93306; 93880; 96365; 96367; 99285; G8978-GP; G8979-GP; G8987-GO; G8988-GO; G8996-GN; G8997-GN; J0692; J1630; J1650; J2060; J3370; J3475; J3490; J7030; J7060; S0164

== ENCOUNTER 2017-01-30 19:36 | Emergency (ER) | payer MEDICARE, MEDICAID ==
--- NOTE | 2017-01-30 19:51 | ER Document Report ---
ED Neuro Symptoms/Deficit - General Chief Complaint: Weakness Stated Complaint: ALTERED MENTAL STATUS Time Seen by Provider: 01/30/17 19:47 Notes: The patient is an 81-year-old female, past medical history A. fib (on Coumadin) , prior CVA with residual gait changes, ovarian cancer without mets (last chemo 3 weeks ago), presents with sudden onset of left arm and leg weakness with decreased mental status that began at 19:00 when she was urinating. According to the daughter, she is pretty independent and walks with a walker sometimes. She used to live at [facility], but the daughter moved her back home this week due to concern about the care she was receiving. The patient was not complaining of a headache, chest pain or shortness of breath prior to the onset of her neurologic symptoms. TRAVEL OUTSIDE OF THE [place] IN LAST 30 DAYS: No - Related Data Allergies/Adverse Reactions: levofloxacin [From Levaquin] Allergy (Intermediate, Verified 07/23/16 17:14) Hives Sulfa (Sulfonamide Antibiotics) Allergy (Intermediate, Verified 07/23/16 17:14) Hives codeine [Codeine] Allergy (Verified 07/23/16 17:14) morphine Allergy (Verified 07/23/16 17:14) Penicillins Allergy (Verified 11/16/16 01:05) Quinazolinones Allergy (Verified 07/23/16 17:14) Past Medical History - General Information source: Relative, Emergency Med Personnel Cannot obtain history due to: Uncooperative - Social History Smoking Status: Unknown if Ever Smoked Family History: Hypertension, Malignancy - Past Medical History Cardiac Medical History: Reports: Hx Atrial Fibrillation, Hx Hypertension Denies: Hx Congestive Heart Failure, Hx Coronary Artery Disease, Hx DVT, Hx Heart Attack, Hx Hypercholesterolemia, Hx Pulmonary Embolism Pulmonary Medical History: Reports: Hx Bronchitis, Hx Pneumonia, Hx Respiratory Failure, Hx Sleep Apnea - Noncompliant with CPAP mask due to claustrophobia Denies: Hx Asthma, Hx COPD Neurological Medical History: Denies: Hx Cerebrovascular Accident, Hx Seizures Endocrine Medical History: Reports: Hx Diabetes Mellitus Type 2 - metformin. Denies: Hx Diabetes Mellitus Type 1, Hx Hyperthyroidism, Hx Hypothyroidism Renal/ Medical History: Denies: Hx Peritoneal Dialysis Malignancy Medical History: Reports: Hx Ovarian Cancer - Currently undergoing chemotherapy for same GI Medical History: Reports: Hx Gastroesophageal Reflux Disease. Denies: Hx Cirrhosis, Hx Hepatitis Musculoskeltal Medical History: Reports Hx Arthritis, Reports Hx Fibromyalgia, Reports Hx Musculoskeletal Deformity Psychiatric Medical History: Reports: Hx Depression - Mild intermittent Infectious Medical History: Denies: Hx Hepatitis Past Surgical History: Reports: Hx Abdominal Surgery, Hx Cholecystectomy, Hx Herniorrhaphy, Hx Orthopedic Surgery - l knee - Immunizations Immunizations up to date: Yes Hx Diphtheria, Pertussis, Tetanus Vaccination: Yes Hx Pneumococcal Vaccination: 03/12/14 Review of Systems - Review of Systems -: Yes ROS unobtainable due to patient's medical condition Neurological/Psychological: Confusion, Weakness Physical Exam - Notes Notes: PHYSICAL EXAMINATION: GENERAL: Eyes closed. Slumped over to right side. HEAD: Atraumatic, normocephalic. EYES: Pupils equal round and reactive to light, extraocular movements intact, sclera anicteric, conjunctiva are normal. ENT: nares patent, oropharynx clear without exudates. Moist mucous membranes. NECK: Normal range of motion, supple without lymphadenopathy LUNGS: Breath sounds clear to auscultation bilaterally and equal. No wheezes rales or rhonchi. HEART: Regular rate, irregular rhythm ABDOMEN: Soft, nontender, normoactive bowel sounds. No guarding, no rebound. No masses appreciated. EXTREMITIES: Strong distal pulses. NEUROLOGICAL: Flaccid left arm and legs. 5/5 strength in all 4 extremities. Left facial droop. SKIN: Warm, Dry, normal turgor, no rashes or lesions noted. Course - Re-evaluation Re-evalutation: Patient presents with sudden onset of left arm and leg weakness, left facial droop, slurred speech and altered mental status at 19:00 tonight that was witnessed by her daughter. CT head shows a possible left parietal infarction. NIHSS 17. Inclusion and exclusion forms for TPA filled out and patient is eligible for TPA. Spoke to daughter at bedside and son on phone about risks and benefits of TPA, including a 1 in 18 chance of a life-threatening head bleed. They understand and give consent for TPA. 01/30/17 20:36 Called over to [facility] to initiate transfer for possible clot removal. Awaiting callback from neurologist. 01/30/17 20:47 Spoke to Stroke team at [facility] and Dr. Peña has accepted patient as ED to ED transfer. Air transportation is being arranged now. 01/30/17 21:15 [employer] in ED and patient reassessed. Protecting her airway and stable for transport. She is still receiving TPA at this time. - Laboratory Result Diagrams: 01/30/17 20:00 01/30/17 20:00 - Diagnostic Test Radiology reviewed: Image reviewed, Reports reviewed Radiology results interpreted by me: CT Head: IMPRESSION: MILD CHRONIC CHANGES OF ATROPHY AND MICROVASCULAR ISCHEMIA. Small focal area of encephalomalacia in the left parietal region over the convexity which was not present on the previous study and could represent an evolving area of infarction. Clinical correlation is recommended. Other findings as noted above. CXR: NAD - EKG Interpretation by Me EKG shows normal: [place], Intervals, QRS Complexes, ST-T Waves Rate: Normal Rhythm: A.Fib Critical Care Note - Critical Care Note Total time excluding time spent on procedures (mins): 55 ED [employer]/Exc Criteria - Date/Time patient last known well: Date/Time: 01/30/2017 19:00 - Date/Time patient arrived in ED: _: 01/30/2017 19:35 - Inclusion Criteria: 1: Patient presented to ED within 3 hours of acute ischemic stroke symptom onset ? -: Yes 2: Did baseline CT exclude intracranial hemorrhage and/or other risk factors? -: Yes 3: Is the age of the patient 18 years of age or greater? -: Yes : If any of the above questions are answered "NO" then stop, patient is not a candidate for Alteplase, : If all of the above questions are answered "YES" then continue with Exclusion Criteria. - Exclusion Criteria: 1: Is there evidence of intracranial hemorrhage on baseline CT? -: No 2: Is there suspicion of subarachnoid hemorrhage (even if CT negative)? -: No 3: Is there a history of serious head trauma, recent previous stroke or IL within 3 months? -: No 4: Does the patient have a clinical presentation consistent with IL or post-IL pericarditis? -: No 5: Is there history of intracranial hemorrhage? -: No 6: On repeated measurement is Systolic BP greater than 185mmHg or Diastolic BP greater that 110 mmHg and is aggressive treatment needed to reduce blood pressure to these limits (e.g. constant infusion of an anti-hypertensive)? -: No 7: Did the patient awake with stroke symptoms? -: No 8: Has the patient had a lumbar puncture or an arterial puncture at a non- compressile site within 7 days? -: No 9: With in the last 14 days did the patient have surgery or major trauma? -: No 10: Is the patient or less than 2 weeks? -: No 11: Was there any active bleeding or acute trauma? -: No 12: Does the patient have intracranial neoplasm, arteriovenous malformation or aneurysm? -: No 13: Does the patient have abnormal glucose (less than 50 or greater than 400mg/ dl)? Record glucose in Comment. -: No 14: Patient has rapidly improving symptoms at the time Alteplase is to be Administered. -: No 15: Does the patient have any risks for bleeding, including but not limited to: a.: Current use of Coumadin with PT greater than 15 seconds or INR greater than 1.7. b.: Current use of Pradaxa (Dabigatran). c.: Heparin administereed within the past 48 hours and PTT elevated. d.: Platelet count less than 100,000/mm. e.: Major surgery or serious trauma within 14 days. f.: Gastrointestinal or gynecological urinary bleeding within 14 days. g.: Myocardial Infarction (IL) within 3 months. -: No : If the answer to any of the above questions is "YES" then stop, the patient is not a candidate for Alteplase. : If the answer to all of the above questions is "NO" then the patient may be eligible for the Administration of Alteplase. : If the patient is noted to have seizure activity at onset of Stroke symptoms; Consult Neurologist for further evaluation. - The patient is: -: Included and is eligible to receive Alteplase. *Initiate bed placement at higher level of care* --: Yes Reviewd risks & benefits of thrombolytic therapy: I have reviewed the risks and benefits of thrombolytic therapy with the patient and/or his/her family. Yes - Daughter (at bedside) and son (by phone) -: Excluded and not eligible to receive Alteplase for the above exclusions. -: Excluded and not eligible to receive Alteplase for other reasons (specify in comments): - Diagnosis of TIA: -: Patient presented with transient symptoms that are now resolved and no other neurologic findings are currently present. List symptoms in comments. -: Patient is NOT a candidate for tPA. -: ____(put name in comment) has been consulted for admission and continued evaluation of risk factor assessment. ED NIH Stroke Scale - NIH Stroke Scale When completed:: Before Alteplase *: 1. NIH scale should be completed with appropriate accompanying assessment tools. *: 2. The NIH should reflect what the patient is capable of doing and should not be coached by the clinician. 1a. Level of Consciousness: 0=Alert;keenly responsive -: 1=Drowsy -: 2=Obtunded -: 3=Coma/unresponsive or reflex to noxious stimuli. 1a. Responses: 1 1b. Orientation Questions: a. What month is it? -: b. How old are you? -: 0=Answers both questions correctly. -: 1=Answers one question correctly or patient is intubated or has orotracheal trauma. -: 2=Answers neither question correctly. 1b. Responses: 2 1c. Response to commands: a. Open and close eyes? -: b. Freight Tallier and release hand? -: Credit is given despite weakness. Demonstration of task is permitted. Substitute command if hands cannot be used. -: 0=Performs both tasks correctly -: 1=Performs one task correctly -: 2=Performs neither task correctly 1c. Responses: 0 2. Gaze: Establish eye contact and instruct patient to "Follow my finger" -: 0=Normal -: 1=Partial gaze palsy. Gaze is abnormal in one or both eyes, but where forced deviation or total gaze paresis is not present. -: 2=Forced deviation or total gaze paresis. 2. Responses: 1 3. Visual Alcantar: Sees fingers in all four quadrants. -: 0=No visual loss. -: 1=Partial hemianopsia. -: 2=Complete hemianopsia. -: 3=Bilateral hemianopsia (including Cortical blindness) 3. Responses: 0 4. Facial Movement: Instruct patient to: -: a. Show me your teeth -: b. Raise your eyebrows -: c. Close your eyes -: d. Smile -: 0=Normal symmetrical movement -: 1=Minor paralysis (flattened nasolabial fold, asymmetry on smiling). -: 2=Partial paralysis (total or near total paralysis of lower face). -: 3=Complete paralysis of upper and lower face 4. Responses: 2 5. Motor functions (left arm): Alternate sides and extend each arm with palms down (90 degrees if sitting or 45 degrees for supine). -: 0=No drift;limb holds for full 10 seconds. -: 1=Drift; limb holds but drifts down before full 10 seconds, but does not hit bed. -: 2=Some effort against gravity; limb cannot get to or maintain position. -: 3=No effort against gravity; limb falls. -: 4=No movement. -: UN=Amputation, joint fusion, explain in comments. 5. Responses (left arm): 4 5. Motor Functions (right arm): Alternate sides and extend each arm with palms down (90 degrees if sitting or 45 degrees for supine). -: 0=No drift;limb holds for full 10 seconds. -: 1=Drift; limb holds but drifts down before full 10 seconds, but does not hit bed. -: 2=Some effort against gravity; limb cannot get to or maintain position. -: 3=No effort against gravity; limb falls. -: 4=No movement. -: UN=Amputation, joint fusion, explain in comments. 5. Responses (right arm): 0 6. Motor Functions (left leg): With patient lying supine, alternate sides and extend each leg (30 degrees always while supine). -: 0=No drift, leg holds position for full 5 seconds -: 1=Drift; leg falls before full 5 seconds but does not hit bed. -: 2=Some effort against gravity, leg falls to bed but some effort against gravity. -: 3=No effort against gravity, leg falls to bed immediately. -: 4=No movement. -: UN=Amputation, joint fusion; explain in comments. 6. Responses (left leg): 3 6. Motor Functions (right leg): With patient lying supine, alternate sides and extend each leg (30 degrees always while supine). -: 0=No drift, leg holds position for full 5 seconds -: 1=Drift; leg falls before full 5 seconds but does not hit bed. -: 2=Some effort against gravity, leg falls to bed but some effort against gravity. -: 3=No effort against gravity, leg falls to bed immediately. -: 4=No movement. -: UN=Amputation, joint fusion; explain in comments. 6. Responses (right leg): 0 7. Limb Ataxia: With eyes open instruct patient to: -: a. "Touch your finger to your nose". -: b. "Touch your heel to your rodriguez" -: 0=Absent -: 1=Present in one limb. -: 2=Present in two limbs. -: UN=Amputation or joint fusion; explain in comments. 7. Responses: 0 8. Sensory: Test sensation using pinprick or noxious stimuli. Test as many body parts as possible. -: 0=Normal;no sensory loss -: 1=Mile to moderate sensory loss (patient feels pin prick but is less sharp on affected side). -: 2=Severe or total sensory loss. 8. Responses: 0 9. Best Language: Instruct patient to: -: a. "Describe what you see in this picture." -: b. "Name the items in this picture." -: c. "Read these sentences." -: 0=No aphasia, normal -: 1=Mild to moderate aphasia. -: 2=Severe aphasia -: 3=Mute, global aphasia, no usable speech or auditory comprehension. 9. Responses: 2 10. Articulation, Dysarthia: Instruct patient to: -: "Read these words" or "Repeat these words" -: 0=Normal -: 1=Mild to moderate; patient may slur some words but can be understood without difficulty. -: 2=Severe; patients speech so slurred as to be unintelligible in the absence of dysphasia. -: UN=Intubated or other physical barrier, explain in comments. 10. Responses: 2 11. Extinction or inattention: 0=No abnormality -: 1= Visual, tactile, auditory, spatial, or personal inattention or extinction to bilateral simulation in one or the sensory modalities. -: 2=Profound kaity-inattention or kaity-inattention to more than one modality; does not recognize own hand. 11. Responses: 0 Total Score: 17 Discharge - Discharge Clinical Impression: Stroke-like symptoms Condition: Serious Disposition: [facility]
--- NOTE | 2017-01-30 20:12 | RADIOLOGY REPORT (SQ) ---
EXAM DESCRIPTION: CT HEAD WITHOUT COMPLETED DATE/TIME: 01/30/2017 7:55 pm REASON FOR STUDY: stroke alert COMPARISON: November 2016 TECHNIQUE: Axial images acquired through the brain without intravenous contrast. Images reviewed wi th bone, brain and subdural windows. Images stored on PACS. All CT scanners at this facility use dose modulation, iterative reconstruction, and/or weight based d osing when appropriate to reduce radiation dose to as low as reasonably achievable (ALARA). [facility]: Dose Right [facility]: CareDose [facility]: Dose Right [facility]: Teradose 4D [facility]: Smart [employer] RADIATION DOSE: mGy. LIMITATIONS: Study is limited due to motion artifact FINDINGS: VENTRICLES: Prominent. CEREBRUM: No masses. No hemorrhage. No midline shift. Areas of low density in the white matter mos t likely due to chronic micro-vascular ischemic change. There is a small focal area of encephalomala michael in the left parietal region over the convexity which was not present on the previous study and co uld represent evolving area of infarction CEREBELLUM: No masses. No hemorrhage. No alteration of density. No evidence for acute infarction. EXTRAAXIAL SPACES: Mild age-related involutional change. No fluid collections. No masses. ORBITS AND GLOBE: No intra- or extraconal masses. Normal contour of globe without masses. CALVARIUM: No fracture. PARANASAL SINUSES: No fluid or mucosal thickening. SOFT TISSUES: No mass or hematoma. OTHER: Calcific densities are again identified associated with the right TMJ. IMPRESSION: MILD CHRONIC CHANGES OF ATROPHY AND MICROVASCULAR ISCHEMIA. Small focal area of encepha lomalacia in the left parietal region over the convexity which was not present on the previous study and could represent an evolving area of infarction. Clinical correlation is recommended. Other find ings as noted above EVIDENCE OF ACUTE STROKE: NO. COMMENT: Pertinent positive or negative findings of the imaging study reported as a CRITICAL EXAM fabiana SHARP MD at20:00 on 01/30/2017. Category of Critical Exam: Stroke alert TECHNICAL DOCUMENTATION: JOB ID: [id number] Quality ID # [id number]: Final reports with documentation of one or more dose reduction techniques (e.g., Au tomated exposure control, adjustment of the mA and/or kV according to patient size, use of iterative reconstruction technique) 2010 [employer]- All Rights Reserved
[2017-01-30] MEDS ORDERED: ASPIRIN 300 MG SUPP, RECTAL PR ONE (20:16)
[2017-01-30 20:17] LABS: ABSOLUTE BASOPHILS # (AUTO) 0.1 10^3/uL (0.0-0.2); ABSOLUTE EOSINOPHILS # (AUTO) 0.1 10^3/uL (0.0-0.6); ABSOLUTE LYMPHOCYTES (AUTO) 1.2 10^3/uL (0.5-4.7); ABSOLUTE MONOCYTES (AUTO) 0.8 10^3/uL (0.1-1.4); ABSOLUTE NEUT (AUTO) 4.7 10^3/uL (1.7-8.2); BASOPHILS % (AUTO) 0.8 % (0-2); EOSINOPHILS % (AUTO) 0.8 % (0-6); HEMATOCRIT 27.7 % (36.0-47.0); HEMOGLOBIN 9.3 g/dL (12.0-15.5); HGB HCT DIFFERENCE 0.2; LYMPHOCYTES % (AUTO) 17.6 % (13-45); MEAN CORPUSCULAR HGB CONC 33.5 g/dL (32.0-36.0); MEAN CORPUSCULAR VOLUME 98 fl (80-97); MONOCYTES % (AUTO) 11.2 % (3-13); RED BLOOD COUNT 2.81 10^6/uL (3.72-5.28); SEGMENTED NEUTROPHILS % (AUTO) 69.6 % (42-78); WHITE BLOOD COUNT 6.7 10^3/uL (4.0-10.5)
--- NOTE | 2017-01-30 20:17 | RADIOLOGY REPORT (SQ) ---
EXAM DESCRIPTION: CHEST SINGLE VIEW COMPLETED DATE/TIME: 01/30/2017 7:57 pm REASON FOR STUDY: stroke alert COMPARISON: 11/22/2016 EXAM PARAMETERS: NUMBER OF VIEWS: One view. TECHNIQUE: Single frontal radiographic view of the chest acquired. RADIATION DOSE: NA LIMITATIONS: None. FINDINGS: LUNGS AND PLEURA: No opacities, masses or pneumothorax. No pleural effusion. MEDIASTINUM AND HILAR STRUCTURES: No masses. Contour normal. HEART AND VASCULAR STRUCTURES: The configuration of the heart mediastinal structures is unchanged BONES: No acute findings. HARDWARE: None in the chest. OTHER: Some elevation of the right hemidiaphragm is again seen. Hiatal hernia is again seen. IMPRESSION: No significant interval change. No acute changes. Other findings as noted above TECHNICAL DOCUMENTATION: JOB ID: [id number] [employer]- All Rights Reserved
[2017-01-30 20:21] LABS: PROTHROMBIN TIME 15.5 SEC (11.4-15.4)
[2017-01-30 20:22] LABS: PARTIAL THROMBOPLASTIN TIME 39.6 SEC (23.5-35.8)
[2017-01-30] MEDS ORDERED: ALTEPLASE INJ 100 MG VIAL ONE (20:29)
[2017-01-30 20:31] LABS: VENOUS BLOOD HCO3 28.3 mmol/L (20-32); VENOUS BLOOD PCO2 52.5 mmHg (35-63); VENOUS BLOOD PH 7.35 (7.30-7.42)
[2017-01-30 20:37] LABS: ALANINE AMINOTRANSFERASE 20 U/L (9-52); ALBUMIN 3.2 g/dL (3.5-5.0); ALKALINE PHOSPHATASE 87 U/L (38-126); ANION GAP 12 (5-19); ASPARTATE AMINO TRANSFERASE 19 U/L (14-36); BILIRUBIN,DIRECT 0.3 mg/dL (0.0-0.4); BILIRUBIN,TOTAL 0.5 mg/dL (0.2-1.3); BLOOD UREA NITROGEN 15 mg/dL (7-20); CALCIUM 8.5 mg/dL (8.4-10.2); CARBON DIOXIDE 26 mmol/L (22-30); CHLORIDE 107 mmol/L (98-107); CREATINE KINASE 50 U/L (30-135); CREATININE RESULT 0.85 mg/dL (0.52-1.25); GLUCOSE 103 mg/dL (75-110); POTASSIUM 4.1 mmol/L (3.6-5.0); SODIUM 144.6 mmol/L (137-145); TOTAL PROTEIN 5.8 g/dL (6.3-8.2)
[2017-01-30 20:50] LABS: CREATINE KINASE MB 1.71 ng/mL (<4.55)
--- NOTE | 2017-01-30 21:01 | EKG REPORT ---
SEVERITY:- ABNORMAL ECG - ATRIAL FIBRILLATION : Confirmed by: Narcisa Colón MD 30-Jan-2017 21:01:19
[2017-01-30 21:06] LABS: TROPONIN I 0.079 ng/mL
[2017-01-30] MEDS ORDERED: ALTEPLASE INJ 100 MG VIAL IV ONE (21:16)
[2017-01-30 21:35] VITALS: BP 128/77
== END 2017-01-30 21:17 | disposition short-term general hospital (02) ==
LOC: ER 19:36
DX: I63.9 Cerebral infarction, unspecified (principal); R29.717 NIHSS score 17; R53.1 Weakness; R41.82 Altered mental status, unspecified; Z79.01 Long term (current) use of anticoagulants; Z86.73 Personal history of transient ischemic attack (TIA), and cerebral infarction without residual deficits
CPT/HCPCS: 36415; 70450; 71010; 80053; 82272; 82550; 82553; 82803; 82962; 83605; 84484; 85025; 85610; 85730; 93005; 93010; 99291